=== PATIENT | female | born 1955 | race Caucasian/White ===

== ENCOUNTER 2017-09-06 08:23 | Inpatient (IN) ==
[2017-09-06] MEDS ORDERED: 0.9 % SODIUM CHLORIDE 1,000 ML IV ONE (08:38)
--- NOTE | 2017-09-06 08:56 | Emergency Department Note ---
GI Bleed HPI - General Chief complaint: Rectal Bleed Stated complaint: Rectal bleeding, diarrhea Time Seen by Provider: 09/06/17 08:54 Source: EMS Mode of arrival: EMS Limitations: no limitations - History of Present Illness HPI Narrative: Patient brought in by ambulance, progressive red blood per rectum, painless. Vomiting of frothy emesis, unclear quality. Patient reporting lightheaded, short of breath and weak. History of similar reaction, apparently treated with transfusions in the past, unclear history, patient unreliable. Patient lives independently. No chest pain. - Related Data Home Medications Medication Instructions Recorded Confirmed Albuterol Sulfate [Proair Hfa] 8.5 gm IH Q4-6HP PRN 08/17/15 09/06/17 HYDROcodone/APAP 5/325MG [[place] 1 - 2 tab PO Q4HP PRN 08/17/15 09/06/17 5/325Mg] LORazepam [Ativan] 0.5 mg PO Q4HP PRN 08/17/15 09/06/17 Spironolactone [Aldactone] 100 mg PO QDAY 08/17/15 09/06/17 Zolpidem Tartrate [Ambien] 5 mg PO QDAY 08/17/15 09/06/17 FLUoxetine HCL [PROzac] 20 mg PO DAILY 09/06/17 09/06/17 Lisinopril [Zestril] 10 mg PO DAILY 09/06/17 09/06/17 Allergies Allergy/AdvReac Type Severity Reaction Status Date / Time No Known Drug Allergies Allergy Verified 09/06/17 08:35 Review of Systems All systems ED: reviewed and negative except as stated. Past Medical History - Past Medical History Attestation: Yes: The following information was validated with the patient. Medical history: Reports: asthma, other (lower GI hemorrhage Alcoholism.) Surgical history ED: Reports: no surgical history Family history: Reports: non-contributory - Social History smoking status: Never smoker Alcohol use: Reports: Heavy Drug use: Reports: marijuana Physical Exam Limitations: no limitations General appearance: alert, other (pale) Head: atraumatic, normocephalic Eye: Present: normal appearance. Absent: scleral icterus ENT: mucous membranes moist Neck: Present: normal inspection. Absent: lymphadenopathy Chest: Present: normal inspection Respiratory: Present: normal lung sounds bilaterally. Absent: respiratory distress Cardiovascular: Present: regular rate, normal rhythm Abdominal: Present: soft. Absent: tenderness Rectal: Present: other ([place] blood, scant). Absent: hemorrhoids, mass Extremities: Present: normal inspection Neurological: Present: alert, oriented X3 Skin: Present: warm, pallor Course Vital Signs Pulse Rate 86 09/06/17 08:24 Respiratory Rate 18 09/06/17 08:24 Blood Pressure 113/71 09/06/17 08:24 Pulse Oximetry (%) 87 L 09/06/17 08:24 Pulse Rate 84 09/06/17 08:46 Respiratory Rate 18 09/06/17 08:46 Blood Pressure 128/81 09/06/17 08:46 Pulse Oximetry (%) 99 09/06/17 08:46 GI Bleed - Lab Data Lab results reviewed: Yes I reviewed the patient's lab results. Result diagrams: 09/06/17 08:43 09/06/17 08:42 Lab Results 09/06/17 Range/Units 08:42 POC Hct 16.0 L* (36.0-48.0) % POC Sodium 136 (133-145) mmol/L POC Potassium 4.0 (3.3-5.1) mmol/L POC Chloride 98 (96-108) mmol/L POC Total CO2 23 (22-30) mmol/L POC BUN 19 (8-23) mg/dl POC Creatinine 1.1 (0.6-1.1) mg/dl POC Glucose 156 H (70-105) mg/dL POC WB Ioniz Calcium 1.06 L (1.16-1.32) mmol/L Disposition Pt seen by SQL BI DEVELOPER/PA only: No Clinical Impression: Rectal bleeding, Pallor Summary: Patient's care transitioned to Dr. wei at shift change, please see his notes for disposition and final diagnosis Disposition: Still a Patient Condition: Undetermined Referrals: Raven Hanson MD [Primary Care Provider] -
[2017-09-06] MEDS ORDERED: 0.9 % SODIUM CHLORIDE 250 ML IV SCH ×2 (09:00→17:00)
[2017-09-06 09:13] LABS: Basophils # (Auto) 0.1 K/mcL (0.0-0.3); Basophils % (Auto) 0.8 % (0.0-2.0); Eosinophils # (Auto) 0.4 K/mcL (0.0-0.7); Eosinophils % (Auto) 5.4 % (0.0-7.0); Lymphocytes # (Auto) 1.9 K/mcL (1.5-4.8); Lymphocytes % (Auto) 23.2 % (15.5-49.0); Mean Cell Volume 92.8 fL (80.0-100.0); Mean Corpuscular HGB Conc 33.8 g/dL (31.0-36.0); Mean Corpuscular Hemoglobin 31.3 pg (26.0-34.0); Monocytes # (Auto) 0.5 K/mcL (0.1-0.9); Monocytes % (Auto) 6.6 % (1.0-12.0); Platelet Count 305 K/mcL (140-440); Red Cell Distribution Width 14.5 % (11.5-14.5)
[2017-09-06 09:24] LABS: ALT/SGPT 52 U/l (0-40); Albumin 3.9 gm/dL (3.2-5.2); Albumin/Globulin Ratio 1.4 (1.0-2.3); Alkaline Phosphatase 53 U/L (39-117); Blood Urea Nitrogen 18 mg/dl (8-23)
--- NOTE | 2017-09-06 10:30 | Emergency Department Note ---
GI Bleed HPI - General Chief complaint: Rectal Bleed Stated complaint: Rectal bleeding, diarrhea Time Seen by Provider: 09/06/17 08:54 Source: EMS Mode of arrival: EMS Limitations: no limitations - Related Data Home Medications Medication Instructions Recorded Confirmed Albuterol Sulfate [Proair Hfa] 8.5 gm IH Q4-6HP PRN 08/17/15 09/06/17 HYDROcodone/APAP 5/325MG [[place] 1 - 2 tab PO Q4HP PRN 08/17/15 09/06/17 5/325Mg] LORazepam [Ativan] 0.5 mg PO Q4HP PRN 08/17/15 09/06/17 Spironolactone [Aldactone] 100 mg PO QDAY 08/17/15 09/06/17 Zolpidem Tartrate [Ambien] 5 mg PO QDAY 08/17/15 09/06/17 FLUoxetine HCL [PROzac] 20 mg PO DAILY 09/06/17 09/06/17 Lisinopril [Zestril] 10 mg PO DAILY 09/06/17 09/06/17 Allergies Allergy/AdvReac Type Severity Reaction Status Date / Time No Known Drug Allergies Allergy Verified 09/06/17 08:35 Past Medical History - Past Medical History Medical history: Reports: asthma, other (lower GI hemorrhage Alcoholism.) Surgical history ED: Reports: no surgical history - Social History smoking status: Never smoker Alcohol use: Reports: Heavy Drug use: Reports: marijuana Physical Exam Limitations: no limitations General appearance: alert, other (pale) Course Vital Signs Pulse Rate 86 09/06/17 08:24 Respiratory Rate 18 09/06/17 08:24 Blood Pressure 113/71 09/06/17 08:24 Pulse Oximetry (%) 87 L 09/06/17 08:24 Pulse Rate 75 09/06/17 10:16 Respiratory Rate 14 09/06/17 10:16 Blood Pressure 143/88 09/06/17 10:16 Pulse Oximetry (%) 97 09/06/17 10:16 GI Bleed - [facility] Narrative Medical decision making narrative: I did a rectal exam this patient and really did not detect active bleeding. I discussed the case with the trains service conductor Dr. Figueroa who is on board with her being admitted. The hospitalist accepts her for admission. We have type and cross 4 units of blood and will start transfusion when available. This seems to be a fairly chronic situation and her vital signs are quite stable. - Lab Data Lab results reviewed: Yes I reviewed the patient's lab results. Result diagrams: 09/06/17 08:43 09/06/17 08:42 Lab Results 09/06/17 09/06/17 09/06/17 Range/Units 08:42 08:43 09:02 WBC 8.2 (4.5-11.0) K/mcL RBC 1.70 L (4.00-5.20) M/mcL Hgb 5.3 L* (12.0-15.0) g/dL Hct 15.8 L* (36.0-48.0) % POC Hct 16.0 L* (36.0-48.0) % MCV 92.8 (80.0-100.0) fL MCH 31.3 (26.0-34.0) pg MCHC 33.8 (31.0-36.0) g/dL RDW 14.5 (11.5-14.5) % Plt Count 305 (140-440) K/mcL MPV 7.5 (7.4-10.4) fL Gran % 64.0 (38.0-78.0) % Lymph % (Auto) 23.2 (15.5-49.0) % Sullivan % (Auto) 6.6 (1.0-12.0) % Eos % (Auto) 5.4 (0.0-7.0) % Baso % (Auto) 0.8 (0.0-2.0) % Gran # 5.2 (1.8-8.0) K/mcL Lymph # (Auto) 1.9 (1.5-4.8) K/mcL Sullivan # (Auto) 0.5 (0.1-0.9) K/mcL Eos # (Auto) 0.4 (0.0-0.7) K/mcL Baso # (Auto) 0.1 (0.0-0.3) K/mcL PT 13.5 (11.9-14.5) sec INR 1.0 (0.9-1.1) POC Sodium 136 (133-145) mmol/L Sodium 134 (133-145) mmol/L POC Potassium 4.0 (3.3-5.1) mmol/L Potassium 4.1 (3.3-5.1) mmol/L POC Chloride 98 (96-108) mmol/L Chloride 96 (96-108) mmol/L Carbon Dioxide 22 (22-30) mmol/L POC Total CO2 23 (22-30) mmol/L Anion Gap 16.0 (8-16) POC BUN 19 (8-23) mg/dl BUN 18 (8-23) mg/dl Creatinine 1.1 (0.6-1.1) mg/dl POC Creatinine 1.1 (0.6-1.1) mg/dl GFR Calculation 54 Glucose 156 H (70-105) mg/dL POC Glucose 156 H (70-105) mg/dL Calcium 8.5 L (8.6-10.4) mg/dl POC WB Ioniz Calcium 1.06 L (1.16-1.32) mmol/L Total Bilirubin < 0.2 (0.0-1.0) mg/dL AST 79 H (0-37) U/l ALT 52 H (0-40) U/l Alkaline Phosphatase 53 (39-117) U/L Total Protein 6.7 (5.9-8.4) gm/dL Albumin 3.9 (3.2-5.2) gm/dL Globulin 2.8 (2.2-3.7) gm/dL Albumin/Globulin Ratio 1.4 (1.0-2.3) Ethyl Alcohol (<0.010) gm/dl 09/06/17 Range/Units 09:26 WBC (4.5-11.0) K/mcL RBC (4.00-5.20) M/mcL Hgb (12.0-15.0) g/dL Hct (36.0-48.0) % POC Hct (36.0-48.0) % MCV (80.0-100.0) fL MCH (26.0-34.0) pg MCHC (31.0-36.0) g/dL RDW (11.5-14.5) % Plt Count (140-440) K/mcL MPV (7.4-10.4) fL Gran % (38.0-78.0) % Lymph % (Auto) (15.5-49.0) % Sullivan % (Auto) (1.0-12.0) % Eos % (Auto) (0.0-7.0) % Baso % (Auto) (0.0-2.0) % Gran # (1.8-8.0) K/mcL Lymph # (Auto) (1.5-4.8) K/mcL Sullivan # (Auto) (0.1-0.9) K/mcL Eos # (Auto) (0.0-0.7) K/mcL Baso # (Auto) (0.0-0.3) K/mcL PT (11.9-14.5) sec INR (0.9-1.1) POC Sodium (133-145) mmol/L Sodium (133-145) mmol/L POC Potassium (3.3-5.1) mmol/L Potassium (3.3-5.1) mmol/L POC Chloride (96-108) mmol/L Chloride (96-108) mmol/L Carbon Dioxide (22-30) mmol/L POC Total CO2 (22-30) mmol/L Anion Gap (8-16) POC BUN (8-23) mg/dl BUN (8-23) mg/dl Creatinine (0.6-1.1) mg/dl POC Creatinine (0.6-1.1) mg/dl GFR Calculation Glucose (70-105) mg/dL POC Glucose (70-105) mg/dL Calcium (8.6-10.4) mg/dl POC WB Ioniz Calcium (1.16-1.32) mmol/L Total Bilirubin (0.0-1.0) mg/dL AST (0-37) U/l ALT (0-40) U/l Alkaline Phosphatase (39-117) U/L Total Protein (5.9-8.4) gm/dL Albumin (3.2-5.2) gm/dL Globulin (2.2-3.7) gm/dL Albumin/Globulin Ratio (1.0-2.3) Ethyl Alcohol < 0.010 (<0.010) gm/dl Disposition Pt seen by PRINTING ESTIMATOR/PA only: No Clinical Impression: Rectal bleeding, Pallor Disposition: Xfer As Inpt ([facility]) Condition: Good Referrals: Raven Hanson MD [Primary Care Provider] - Time of Disposition: 10:30
[2017-09-06] MEDS ORDERED: PANTOPRAZOLE 40 MG VIAL IV ONE (11:59)
--- NOTE | 2017-09-06 12:12 | Internal Med History&Physical ---
Medical - H&P: HPI Patient information: Note initiated : 09/06/17 at 12:10 pm Service Date, if different from initiated Date: [] Patient: Brent Curtis a 61 y/o F admitted on for Rectal bleeding, diarrhea. Chief Complaint: [] Chief complaint: blood in watery stool over a week History of present illness: Ms. Curtis is a 61 year old F PMHx of HTN, OA, fatty liver, hep C, and ran out of her [place] (hydrocodone), and had been taking aspirin for the last couple weeks for her arthritis pain. She began developing watery bloody diarrhea with clumps of blood clots, and developed progressive weakness and lightheadedness in the last several days. Her last bowel movement was very early this morning. She reported similar event in the past and was treated last several years ago at [facility]. Her hemoglobin is at 5.3, with INR 1.0, currently starting on blood transfusion. GI with Dr. Figueroa has been consulted by Dr. Sierra of ER for potential endoscopy to evaluate GI bleed. She'll benefit from Protonix IV at the interim, will start. All systems: reviewed and no additional remarkable complaints except as stated - Constitutional Constitutional: Present: weakness - Cardiovascular Cardiovascular: Present: lightheadedness - Gastrointestinal Gastrointestinal: Present: diarrhea - Neurological Neurological: Present: as per HPI, weakness - Psychiatric Psychiatric: Present: depression Medical - H&P: PMH Medical history: Hypertension, osteoarthritis, fatty liver, hepatitis C GI hemorrhage, reported Alcoholism on record Social history: Live alone, her son and families are in town. Functional capacity: uses cane/walker Drug use: marijuana (smoked marijuana oil) Alcohol use: none (denies alcohol use (reported Alcoholism on record)) Medical - H&P: Meds Home Medications Medication Instructions Recorded Confirmed Type Albuterol Sulfate [Proair Hfa] 8.5 gm IH Q4-6HP PRN 08/17/15 09/06/17 History HYDROcodone/APAP 5/325MG [[place] 1 - 2 tab PO Q4HP PRN 08/17/15 09/06/17 History 5/325Mg] LORazepam [Ativan] 0.5 mg PO Q4HP PRN 08/17/15 09/06/17 History Spironolactone [Aldactone] 100 mg PO QDAY 08/17/15 09/06/17 History Zolpidem Tartrate [Ambien] 5 mg PO QDAY 08/17/15 09/06/17 History FLUoxetine HCL [PROzac] 20 mg PO DAILY 09/06/17 09/06/17 History Lisinopril [Zestril] 10 mg PO DAILY 09/06/17 09/06/17 History Omeprazole [PriLOSEC] 20 mg PO ACB 09/06/17 09/06/17 History Allergies Allergy/AdvReac Type Severity Reaction Status Date / Time No Known Drug Allergies Allergy Verified 09/06/17 08:35 Medical - H&P: Exam - Constitutional Vitals: Pulse Resp BP Pulse Ox 75 11 L 166/96 97 09/06/17 12:01 09/06/17 12:01 09/06/17 12:01 09/06/17 12:01 General appearance: cooperative Exam: Very pale elderly female, appearing much older than stated age - Head Head exam: Present: atraumatic, normocephalic - Eye Eye exam: Present: EOMI Pupils: Present: normal accommodation, PERRL - ENT ENT exam: Present: mucous membranes dry - Neck Neck exam: Present: full ROM. Absent: meningismus - Respiratory Respiratory exam: Present: CTAB. Absent: accessory muscle use - Cardiovascular Cardiovascular exam: Present: +S1, +S2. Absent: gallop, rubs - GI/Abdominal GI/Abdominal exam: Present: normal bowel sounds, soft. Absent: guarding, rebound, tenderness - Extremities Exam Extremities exam: Present: full ROM. Absent: pedal edema, tenderness Additional comments: Code feet, but No clubbing/cyanosis, or edema - Neurological Exam Neurological exam: Present: alert, CN II-XII intact, oriented X3 - Psychiatric Psychiatric exam: Present: anxious - Skin Skin exam: Present: dry, pallor Medical - H&P: Reslt - Labs CBC & Chem 7: 09/06/17 22:50 09/06/17 08:42 Labs: Short CBC 09/06/17 Range/Units 08:43 WBC 8.2 (4.5-11.0) K/mcL Hgb 5.3 L* (12.0-15.0) g/dL Hct 15.8 L* (36.0-48.0) % Plt Count 305 (140-440) K/mcL BMP 09/06/17 08:42 Sodium 134 Potassium 4.1 Chloride 96 Carbon Dioxide 22 BUN 18 Creatinine 1.1 Glucose 156 H Calcium 8.5 L Liver Function 09/06/17 Range/Units 08:42 Total Bilirubin < 0.2 (0.0-1.0) mg/dL AST 79 H (0-37) U/l ALT 52 H (0-40) U/l Alkaline Phosphatase 53 (39-117) U/L Albumin 3.9 (3.2-5.2) gm/dL Medical - H&P: A/P (1) GI bleed due to NSAIDs Current visit: Yes Status: Acute (2) Anemia Current visit: No Status: Acute - Narrative A/P Narrative: 61-year-old female with history of reported alcohol abuse (patient denies), hep C, fatty liver, have significant anemia, from GI bleeding due to NSAID use. --Transfuse 4 units packed red blood cells, Protonix drip, --Check TSH, reticulocyte count, guaiac all stools, --GI consult with Dr. Figueroa for potential endoscopy --Stop all NSAID use. Iron replacement
[2017-09-06] MEDS: PANTOPRAZOLE 80 MG in 0.9 % SODIUM CHLORIDE 100 ML IV SCH ×2 (12:21→21:54)
[2017-09-06 13:34] LABS: Ferritin 27.6 ng/ml (30-400)
[2017-09-06 13:43] LABS: Retic Absolute 3.3 % (0.5-1.5)
[2017-09-06] MEDS: 0.9 % SODIUM CHLORIDE 10 ML SYRINGE IV SCH ×3 (14:29→21:54)
[2017-09-06 14:38] LABS: Appearance,Urine CLEAR; Bacteria,Urine 0 /hpf (0); Bilirubin,Urine NEG (NEG); Color,Urine YELLOW; Glucose,Urine (UA) NEGATIVE (NEG); Leukocyte Esterase,Urine NEG /uL (NEG); Mucus,Urine FEW /hpf (0); Protein,Urine NEG (NEG); Specific Gravity,Urine 1.013 (1.000-1.035); Urine Blood 0.03 mg/dL (<0.03); Urine Hyaline Cast 4 /lpf (0-2); Urine RBC < 1 /hpf (0-1); Urine Squamous Epithelial Cell 1 /hpf (0-4); Urine WBC 1 /hpf (0-4); Urobilinogen,Urine NEG (NEG)
[2017-09-06] MEDS ORDERED: METOPROLOL TARTRATE 5 MG/5 ML VIAL IV ONE ×2 (16:45→17:36)
[2017-09-06] MEDS ORDERED: FUROSEMIDE 20 MG/2 ML VIAL IV ONE ×2 (16:50→17:37)
[2017-09-06 17:59] LABS: Gamma Glutamyl Transpeptidase 39 U/L (5-36)
[2017-09-06] MEDS ORDERED: LISINOPRIL 10 MG TABLET PO ONE (18:15)
[2017-09-06] MEDS: HYDROcodone/APAP 5/325MG TABLET PO PRN ×2 (19:15→23:11)
[2017-09-07] MEDS: HYDROcodone/APAP 5/325MG TABLET PO PRN ×3 (04:16→22:20)
[2017-09-07] MEDS: 0.9 % SODIUM CHLORIDE 10 ML SYRINGE IV SCH ×3 (05:17→22:25)
[2017-09-07 05:50] LABS: Basophils # (Auto) 0 K/mcL (0.0-0.3); Basophils % (Auto) 0.5 % (0.0-2.0); Eosinophils # (Auto) 0.3 K/mcL (0.0-0.7); Eosinophils % (Auto) 3.4 % (0.0-7.0); Granulocytes % (Auto) 70.4 % (38.0-78.0); Lymphocytes # (Auto) 1.4 K/mcL (1.5-4.8); Lymphocytes % (Auto) 18.4 % (15.5-49.0); Mean Cell Volume 91.2 fL (80.0-100.0); Mean Corpuscular HGB Conc 34.1 g/dL (31.0-36.0); Mean Corpuscular Hemoglobin 31.1 pg (26.0-34.0); Monocytes # (Auto) 0.6 K/mcL (0.1-0.9); Monocytes % (Auto) 7.3 % (1.0-12.0); Platelet Count 192 K/mcL (140-440); RBC 4.03 M/mcL (4.00-5.20); Red Cell Distribution Width 15.7 % (11.5-14.5)
[2017-09-07 06:19] LABS: ALT/SGPT 41 U/l (0-40); Albumin 3.7 gm/dL (3.2-5.2); Albumin/Globulin Ratio 1.5 (1.0-2.3); Alkaline Phosphatase 56 U/L (39-117); Blood Urea Nitrogen 12 mg/dl (8-23)
[2017-09-07] MEDS: 0.9 % SODIUM CHLORIDE 250 ML IV SCH ×2 (06:37→22:27)
[2017-09-07] MEDS: PANTOPRAZOLE 80 MG in 0.9 % SODIUM CHLORIDE 100 ML IV SCH ×3 (06:53→22:00)
[2017-09-07] MEDS ORDERED: POTASSIUM CHLORIDE 40 MEQ in DEXTROSE 5% IN WATER 500 ML IV ONE (07:39)
[2017-09-07] MEDS ORDERED: CALCIUM GLUCONATE 4.65 MEQ/10 ML VIAL IV ONE (07:39)
--- NOTE | 2017-09-07 07:47 | Internal Med Progress Note ---
Medical - PN: Subj Patient information: Note initiated : 09/07/17 at 7:46 am Service Date, if different from initiated Date: [] Patient: Brent Curtis a 61 y/o F admitted on 09/06/17 for Rectal bleeding, diarrhea. Chief Complaint: [] Interval history: 61 year old F with PMHx of HTN, OA, fatty liver, hep C, and ran out of her [place] (hydrocodone), and had been taking aspirin for the last couple weeks for her arthritis pain. She began developing watery bloody diarrhea with clumps of blood clots, and developed progressive weakness and lightheadedness in the last several days. Her last bowel movement was very early this morning. She reported similar event in the past and was treated last several years ago at [facility]. Her hemoglobin is at 5.3, with INR 1.0, currently starting on blood transfusion. GI with Dr. Figueroa has been consulted by Dr. Sierra of ER for potential endoscopy to evaluate GI bleed. She is put on Protonix IV at the interim. 09/07/17 No bowel movement or diarrhea overnight since admission. TSH and free T4 evaluation shows hypothyroidism, will start oral replacement. Colonoscopy with Dr. Figueroa today. - Constitutional Vitals: Vital Signs Temp Pulse Resp BP Pulse Ox 98.5 F 64 14 140/86 97 09/07/17 04:09 09/07/17 04:09 09/07/17 03:41 09/07/17 03:41 09/07/17 04:09 Period Temp Pulse Resp BP Sys/Rae Pulse Ox Last 24 Hr 97.9 F-99.7 F 64-86 11-25 113-179/71-117 87-100 Intake and Output 09/06/17 09/07/17 09/07/17 21:59 05:59 13:59 Intake Total 814 / 814 200 / 200 3 / 3 Output Total 1700 / 1700 600 / 600 Balance -886 / -886 -400 / -400 3 / 3 Weight 132 lb 11.2 oz Intake & Output: Intake & Output 09/06/17 09/07/17 09/07/17 21:59 05:59 13:59 Intake Total 814 / 814 200 / 200 3 / 3 Output Total 1700 / 1700 600 / 600 Balance -886 / -886 -400 / -400 3 Weight 132 lb 11.2 oz Intake: IV 164 / 164 3 / 3 Sodium Chloride 0.9% 250 ml @ 68 / 68 3 / 3 20 mls/hr IV .[id number] ROBB Rx#: [id number] Protonix 80 mg In Sodium 96 / 96 Chloride 0.9% 100 ml @ 8 MG/HR 10 mls/hr IV Q10H ROBB Rx#: [id number] Oral 0 / 0 200 / 200 Blood Product 650 / 650 Output: Urine Catheter Amount 950 / 950 600 / 600 Void Amount 750 / 750 # of times incontinent of urine 0 / 0 Other: Stool Size Small Stool Color Brown Blood Tinged Stool Consistency Honey # Voids 1 # Bowel Movements 1 Medical - PN: Obj Da - Labs CBC & Chem 7: 09/07/17 04:00 09/07/17 04:00 Labs: Abnormal Lab Results 09/07/17 09/07/17 09/06/17 04:00 04:00 23:15 RBC Hgb Hct POC Hct RDW 15.7 H Lymph # (Auto) 1.4 L Absolute Retic Potassium 3.1 L Chloride 95 L Glucose POC Glucose Calcium 8.1 L POC WB Ioniz Calcium Transferrin % Sat Ferritin Total Bilirubin 1.2 H GGT AST 51 H ALT 41 H Ammonia Troponin T 0.05 H* TSH Free T4 Urine Occult Blood Hyaline Casts 09/06/17 09/06/17 09/06/17 22:50 16:55 16:55 RBC Hgb Hct 35.9 L POC Hct RDW Lymph # (Auto) Absolute Retic Potassium Chloride Glucose POC Glucose Calcium POC WB Ioniz Calcium Transferrin % Sat Ferritin Total Bilirubin GGT 39 H AST ALT Ammonia 10 L Troponin T TSH Free T4 Urine Occult Blood Hyaline Casts 09/06/17 09/06/17 09/06/17 14:09 14:03 13:25 RBC Hgb Hct POC Hct RDW Lymph # (Auto) Absolute Retic Potassium Chloride Glucose POC Glucose Calcium POC WB Ioniz Calcium Transferrin % Sat Ferritin Total Bilirubin GGT AST ALT Ammonia Troponin T 0.05 H* TSH Free T4 0.14 L Urine Occult Blood 0.03 A Hyaline Casts 4 H 09/06/17 09/06/17 09/06/17 12:34 12:33 08:43 RBC Hgb Hct POC Hct RDW Lymph # (Auto) Absolute Retic 3.3 H Potassium Chloride Glucose POC Glucose Calcium POC WB Ioniz Calcium Transferrin % Sat 11 L Ferritin 27.6 L Total Bilirubin GGT AST ALT Ammonia Troponin T 0.04 H* TSH 91.46 H Free T4 Urine Occult Blood Hyaline Casts 09/06/17 09/06/17 08:43 08:42 RBC 1.70 L Hgb 5.3 L* Hct 15.8 L* POC Hct 16.0 L* RDW Lymph # (Auto) Absolute Retic Potassium Chloride Glucose 156 H POC Glucose 156 H Calcium 8.5 L POC WB Ioniz Calcium 1.06 L Transferrin % Sat Ferritin Total Bilirubin GGT AST 79 H ALT 52 H Ammonia Troponin T TSH Free T4 Urine Occult Blood Hyaline Casts Meds: Medications Hydrocodone Bitart/Acetaminophen ([place] 5/325mg) 1 tab PO Q4-6HP PRN PRN Reason: PAIN LEVEL 3-6 Last Admin: 09/07/17 04:16 Dose: 1 tab Calcium Gluconate (Calcium Gluconate) 9.3 meq IV ONCE ONE Stop: 09/07/17 07:40 Fluoxetine HCl (Prozac) 20 mg PO DAILY ROBB Sodium Chloride (Sodium Chloride 0.9%) 250 mls @ 20 mls/hr IV .[id number] [facility] Last Infusion: 09/07/17 06:53 Dose: 14 mls/hr Pantoprazole Sodium 80 mg/ (Sodium Chloride) 100 mls @ 10 mls/hr IV Q10H ROBB PRN Reason: 8 MG/HR Last Admin: 09/07/17 06:53 Dose: 8 mg/hr, 10 mls/hr Potassium Chloride 40 meq/ (Dextrose) 520 mls @ 130 mls/hr IV ONCE ONE Stop: 09/07/17 11:38 Lisinopril (Zestril) 10 mg PO DAILY ROBB Ondansetron HCl (Zofran) 4 mg IV Q4HP PRN PRN Reason: Nausea And Vomiting Sodium Chloride (Saline Flush) 10 ml IV Q8 ROBB Last Admin: 09/07/17 05:17 Dose: 10 ml Medical - PN: A/P - Time Spent With Patient Total time spent is greater than 50% in coordination of care (as documented) at patient's floor/unit and/or counseling patient: (1) GI bleed due to NSAIDs Status: Acute Current Visit: Yes (2) Anemia Status: Acute Current Visit: No Medical - PN: Qual - Stroke Symptom Onset Unknown: No - VTE Deep Vein Thrombosis/Pulmonary Embolism Present on Admission: No
[2017-09-07] MEDS ORDERED: PEG 3350/NA SULF,BICARB,CL/KCL 4,000 ML ORAL.SOL PO ONE (08:58)
[2017-09-07] MEDS ORDERED: LISINOPRIL 10 MG TABLET PO SCH (09:00)
[2017-09-07] MEDS: LISINOPRIL 10 MG TABLET PO SCH (09:14)
[2017-09-07] MEDS: FLUoxetine HCL 20 MG CAPSULE PO SCH (09:14)
[2017-09-07] MEDS ORDERED: DEXTROSE 5% IV ONE (10:30)
[2017-09-07] MEDS ORDERED: CALCIUM CHLORIDE IV ONE (10:30)
[2017-09-07] MEDS ORDERED: WATER IV ONE (10:30)
[2017-09-07] MEDS: ONDANSETRON 4 MG/2 ML VIAL IV PRN (12:38)
[2017-09-07] MEDS ORDERED: amLODIPine 5 MG TABLET PO ONE (14:45)
[2017-09-07] MEDS ORDERED: SPIRONOLACTONE 25 MG TABLET PO ONE (14:45)
[2017-09-07] MEDS ORDERED: LEVOTHYROXINE 50 MCG TABLET PO ONE (18:26)
[2017-09-07] MEDS ORDERED: BISACODYL 5 MG TABLET PO SCH (21:00)
[2017-09-07] MEDS ORDERED: LABETALOL 5 MG/ML ML IV PRN (21:16)
[2017-09-07] MEDS ORDERED: NITROGLYCERIN 1 GM OINT.TOP ONE (22:18)
[2017-09-07] MEDS: NITROGLYCERIN 1 GM OINT.TOP TD SCH (22:20)
[2017-09-08] MEDS: ONDANSETRON 4 MG/2 ML VIAL IV PRN ×2 (04:02→10:35)
[2017-09-08] MEDS: 0.9 % SODIUM CHLORIDE 10 ML SYRINGE IV SCH ×5 (04:02→22:10)
[2017-09-08] MEDS: PANTOPRAZOLE 80 MG in 0.9 % SODIUM CHLORIDE 100 ML IV SCH (05:21)
[2017-09-08] MEDS: NITROGLYCERIN 1 GM OINT.TOP TD SCH ×3 (05:48→20:39)
[2017-09-08 07:02] LABS: ALT/SGPT 37 U/l (0-40); Albumin 3.7 gm/dL (3.2-5.2); Albumin/Globulin Ratio 1.2 (1.0-2.3); Alkaline Phosphatase 57 U/L (39-117); Blood Urea Nitrogen 8 mg/dl (8-23)
--- NOTE | 2017-09-08 07:43 | Internal Med Progress Note ---
Medical - PN: Subj Patient information: Note initiated : 09/08/17 at 7:43 am Service Date, if different from initiated Date: [] Patient: Brent Curtis a 61 y/o F admitted on 09/06/17 for Rectal Bleeding, Diarrhea/GI Bleed due to NSAIDs. Chief Complaint: [] Interval history: 61 year old F with PMHx of HTN, OA, fatty liver, hep C, and ran out of her [place] (hydrocodone), and had been taking aspirin for the last couple weeks for her arthritis pain. She began developing watery bloody diarrhea with clumps of blood clots, and developed progressive weakness and lightheadedness in the last several days. Her last bowel movement was very early this morning. She reported similar event in the past and was treated last several years ago at [facility]. Her hemoglobin is at 5.3, with INR 1.0, currently starting on blood transfusion. GI with Dr. Figueroa has been consulted by Dr. Sierra of ER for potential endoscopy to evaluate GI bleed. She is put on Protonix IV at the interim. 09/07/17 No bowel movement or diarrhea overnight since admission. TSH and free T4 evaluation shows hypothyroidism, will start oral replacement. Colonoscopy with Dr. Figueroa today. 09/08/[address] Figueroa, colonoscopy with few sessile polyps ( removed with snare), diverticula without diverticulitis, or sources of bleeding , Dr. Figueroa will proceed with EGD to evaluate GI bleeding tomorrow. Low potassium today, IV replace K rider. Otherwise patient is doing well, no more incidence of melena, hematochezia, nor black tarry stool. We will stop protonic strip. Continue daily Synthroid 25 g after initial dose of 50 g yesterday evening. - Constitutional Vitals: Vital Signs Temp Pulse Resp BP Pulse Ox 98.2 F 70 16 143/95 96 09/08/17 06:51 09/07/17 20:01 09/08/17 06:51 09/08/17 06:51 09/08/17 06:51 Period Temp Pulse Resp BP Sys/Rae Pulse Ox Last 24 Hr 97.5 F-98.2 F 70-81 16-20 134-207/91-122 93-98 Intake and Output 09/07/17 09/08/1709/08/18 21:59 05:59 13:59 Intake Total 880 / 880 578 / 578 Output Total 1225 / 1225 1400 / 1400 Balance -345 / -345 -822 / -822 Weight 134 lb 7 oz Intake & Output: Intake & Output 09/07/17 09/08/17 09/08/17 21:59 05:59 13:59 Intake Total 880 / 880 578 / 578 Output Total 1225 / 1225 1400 / 1400 Balance -345 / -345 -822 / -822 Weight 134 lb 7 oz Intake: IV 880 / 880 218 / 218 Sodium Chloride 0.9% 250 ml @ 218 / 218 20 mls/hr IV .[id number] Rx#: [id number] Protonix 80 mg In Sodium 100 / 100 Chloride 0.9% 100 ml @ 8 MG/HR 10 mls/hr IV Q10H ROBB Rx#: [id number] Oral 360 / 360 Output: Urine Catheter Amount 675 / 675 Void Amount 750 / 750 Stool 550 / 550 650 / 650 Other: Stool Size Copious Stool Color Brown Black Bright Red Blood Dark Red Blood Stool Consistency Liquid Watery Loose # Bowel Movements 2 # of times incontinent of 1 Bowels - Head Head exam: Present: atraumatic, normocephalic - Eye Eye exam: Present: EOMI Pupils: Present: normal accommodation, PERRL - ENT ENT exam: Present: mucous membranes dry - Neck Neck exam: Absent: lymphadenopathy, meningismus - Respiratory Respiratory exam: Present: CTAB. Absent: accessory muscle use - Cardiovascular Cardiovascular exam: Present: +S1, +S2. Absent: gallop, rubs - GI/Abdominal GI/Abdominal exam: Present: soft. Absent: guarding, rebound - Extremities Exam Extremities exam: Present: normal capillary refill, neurovascular intact. Absent: pedal edema - Neurological Exam Neurological exam: Present: alert, CN II-XII intact. Absent: motor sensory deficit - Psychiatric Additional comments: Somewhat hypertalkative, and odds - Skin Skin exam: Present: dry, intact, warm Medical - PN: Obj Da - Labs CBC & Chem 7: 09/09/17 06:51 09/09/17 03:25 Labs: Abnormal Lab Results 09/08/17 09/07/17 09/07/17 03:35 04:00 04:00 RBC Hgb Hct POC Hct RDW 15.7 H Lymph # (Auto) 1.4 L Absolute Retic Potassium 2.9 L* 3.1 L Chloride 95 L 95 L Glucose POC Glucose Calcium 8.5 L 8.1 L POC WB Ioniz Calcium Transferrin % Sat Ferritin Total Bilirubin 1.2 H GGT AST 46 H 51 H ALT 41 H Ammonia Troponin T TSH Free T4 Urine Occult Blood Hyaline Casts 09/06/17 09/06/17 09/06/17 23:15 22:50 16:55 RBC Hgb Hct 35.9 L POC Hct RDW Lymph # (Auto) Absolute Retic Potassium Chloride Glucose POC Glucose Calcium POC WB Ioniz Calcium Transferrin % Sat Ferritin Total Bilirubin GGT AST ALT Ammonia 10 L Troponin T 0.05 H* TSH Free T4 Urine Occult Blood Hyaline Casts 09/06/17 09/06/17 09/06/17 16:55 14:09 14:03 RBC Hgb Hct POC Hct RDW Lymph # (Auto) Absolute Retic Potassium Chloride Glucose POC Glucose Calcium POC WB Ioniz Calcium Transferrin % Sat Ferritin Total Bilirubin GGT 39 H AST ALT Ammonia Troponin T 0.05 H* TSH Free T4 0.14 L Urine Occult Blood Hyaline Casts 09/06/17 09/06/17 09/06/17 13:25 12:34 12:33 RBC Hgb Hct POC Hct RDW Lymph # (Auto) Absolute Retic 3.3 H Potassium Chloride Glucose POC Glucose Calcium POC WB Ioniz Calcium Transferrin % Sat 11 L Ferritin 27.6 L Total Bilirubin GGT AST ALT Ammonia Troponin T TSH 91.46 H Free T4 Urine Occult Blood 0.03 A Hyaline Casts 4 H 09/06/17 09/06/17 09/06/17 08:43 08:43 08:42 RBC 1.70 L Hgb 5.3 L* Hct 15.8 L* POC Hct 16.0 L* RDW Lymph # (Auto) Absolute Retic Potassium Chloride Glucose 156 H POC Glucose 156 H Calcium 8.5 L POC WB Ioniz Calcium 1.06 L Transferrin % Sat Ferritin Total Bilirubin GGT AST 79 H ALT 52 H Ammonia Troponin T 0.04 H* TSH Free T4 Urine Occult Blood Hyaline Casts Meds: Medications Hydrocodone Bitart/Acetaminophen ([place] 5/325mg) 1 tab PO Q4-6HP PRN PRN Reason: PAIN LEVEL 3-6 Last Admin: 09/07/17 22:20 Dose: 1 tab Amlodipine Besylate (Norvasc) 5 mg PO DAILY [facility] Bisacodyl (Dulcolax) 5 mg PO DAILY [facility] Stop: 09/09/17 08:59 Fluoxetine HCl (Prozac) 20 mg PO DAILY [facility] Last Admin: 09/07/17 09:14 Dose: 20 mg Sodium Chloride (Sodium Chloride 0.9%) 250 mls @ 20 mls/hr IV .[id number] [facility] Last Admin: 09/07/17 22:27 Dose: 10 mls/hr Potassium Chloride 20 meq/ (Dextrose) 260 mls @ 130 mls/hr IV ONCE ONE Stop: 09/08/17 09:59 Labetalol HCl (Trandate) 10 mg IV Q2HP PRN PRN Reason: uncontrolled hypertension Levothyroxine Sodium (Synthroid) 25 mcg PO QAMAC [facility] Lisinopril (Zestril) 10 mg PO DAILY [facility] Last Admin: 09/07/17 09:14 Dose: 10 mg Magnesium Citrate (Citroma) 300 ml PO DAILY [facility] Stop: 09/09/17 08:59 Nitroglycerin (Nitro-Bid) 1 gm TD Q6HX2R@1800 [facility] Last Admin: 09/08/17 05:48 Dose: 1 gm Ondansetron HCl (Zofran) 4 mg IV Q4HP PRN PRN Reason: Nausea And Vomiting Last Admin: 09/08/17 04:02 Dose: 4 mg Polyethylene Glycol/Electrolytes (Golytely) 4,000 ml PO ONCE ONE Stop: 09/08/17 10:01 Sodium Chloride (Saline Flush) 10 ml IV Q8 [facility] Last Admin: 09/08/17 04:02 Dose: 10 ml Spironolactone (Aldactone) 100 mg PO DAILY [facility] Medical - PN: A/P - Time Spent With Patient Total time spent is greater than 50% in coordination of care (as documented) at patient's floor/unit and/or counseling patient: (1) GI bleed due to NSAIDs Status: Acute Current Visit: Yes (2) Hypothyroidism Status: Acute Current Visit: Yes (3) Anemia Status: Acute Current Visit: No - Narrative A/P Narrative: See above Medical - PN: Qual - Stroke Symptom Onset Unknown: No - VTE Deep Vein Thrombosis/Pulmonary Embolism Present on Admission: No
[2017-09-08] MEDS ORDERED: POTASSIUM CHLORIDE 20 MEQ in DEXTROSE 5% IN WATER 250 ML IV ONE (08:00)
[2017-09-08] MEDS: LEVOTHYROXINE 25 MCG TABLET PO SCH (08:23)
[2017-09-08] MEDS: 0.9 % SODIUM CHLORIDE 250 ML IV SCH (08:25)
[2017-09-08] MEDS ORDERED: BISACODYL 5 MG TABLET PO SCH (09:00)
[2017-09-08] MEDS ORDERED: MAGNESIUM CITRATE 300 ML ORAL.SOL PO SCH (09:00)
[2017-09-08] MEDS: LISINOPRIL 10 MG TABLET PO SCH (09:28)
[2017-09-08] MEDS: amLODIPine 5 MG TABLET PO SCH (09:28)
[2017-09-08] MEDS: FLUoxetine HCL 20 MG CAPSULE PO SCH (09:28)
[2017-09-08] MEDS: SPIRONOLACTONE 25 MG TABLET PO SCH (09:29)
[2017-09-08] MEDS ORDERED: PEG 3350/NA SULF,BICARB,CL/KCL 4,000 ML ORAL.SOL PO ONE (10:00)
[2017-09-08] MEDS ORDERED: LORazepam 2 MG/ML VIAL IV PRN (11:02)
[2017-09-08] MEDS ORDERED: MIDAZOLAM 2 MG/2 ML VIAL IV SCH (17:45)
[2017-09-08] MEDS ORDERED: PROPOFOL 200 MG/20 ML VIAL IV SCH (17:45)
[2017-09-08] MEDS ORDERED: PROPOFOL 20 ML IV ONE (17:46)
[2017-09-08] MEDS ORDERED: MIDAZOLAM 2 MG/2 ML VIAL ONE (17:46)
[2017-09-08] MEDS ORDERED: PROPOFOL 0 ML IV ONE (17:46)
[2017-09-09] MEDS: 0.9 % SODIUM CHLORIDE 10 ML SYRINGE IV SCH ×4 (05:33→21:00)
[2017-09-09] MEDS: HYDROcodone/APAP 5/325MG TABLET PO PRN (05:33)
[2017-09-09] MEDS: NITROGLYCERIN 1 GM OINT.TOP TD SCH ×3 (05:34→17:48)
[2017-09-09 05:35] LABS: ALT/SGPT 33 U/l (0-40); Albumin 3.7 gm/dL (3.2-5.2); Albumin/Globulin Ratio 1.3 (1.0-2.3); Alkaline Phosphatase 57 U/L (39-117); Blood Urea Nitrogen 5 mg/dl (8-23)
[2017-09-09 07:22] LABS: Basophils # (Auto) 0 K/mcL (0.0-0.3); Basophils % (Auto) 0.2 % (0.0-2.0); Eosinophils # (Auto) 0.2 K/mcL (0.0-0.7); Eosinophils % (Auto) 2.7 % (0.0-7.0); Granulocytes % (Auto) 76.7 % (38.0-78.0); Lymphocytes # (Auto) 1.1 K/mcL (1.5-4.8); Mean Cell Volume 91.2 fL (80.0-100.0); Mean Corpuscular HGB Conc 34.2 g/dL (31.0-36.0); Mean Corpuscular Hemoglobin 31.2 pg (26.0-34.0); Monocytes # (Auto) 0.6 K/mcL (0.1-0.9); Monocytes % (Auto) 7.4 % (1.0-12.0); Platelet Count 232 K/mcL (140-440); RBC 3.77 M/mcL (4.00-5.20); Red Cell Distribution Width 15.6 % (11.5-14.5)
[2017-09-09] MEDS: LEVOTHYROXINE 25 MCG TABLET PO SCH (07:41)
[2017-09-09] MEDS ORDERED: MIDAZOLAM 2 MG/2 ML VIAL IV SCH (08:15)
[2017-09-09] MEDS ORDERED: PROPOFOL 200 MG/20 ML VIAL IV SCH (08:15)
[2017-09-09] MEDS: amLODIPine 5 MG TABLET PO SCH (09:25)
[2017-09-09] MEDS: SPIRONOLACTONE 25 MG TABLET PO SCH (09:25)
[2017-09-09] MEDS: FLUoxetine HCL 20 MG CAPSULE PO SCH (09:25)
[2017-09-09] MEDS: LISINOPRIL 10 MG TABLET PO SCH (09:25)
--- NOTE | 2017-09-09 09:36 | Operative Note ---
DATE OF OPERATION: 09/08/2017 PREPROCEDURE DIAGNOSIS: Lower GI bleed, possibly secondary to cancer causing partial obstruction. POSTPROCEDURE DIAGNOSES: Three colon polyps, diverticulosis, hemorrhoids, no active bleeding found. Bleeding could be from upper GI tract or from diverticular bleeding that has subsequently stopped. ADDITIONAL COMMENTS: Colored fluid in the colon was negative for blood, negative guaiac. PROCEDURE: Colonoscopy with polypectomy. INSTRUMENT USED: Olympus LORAINE [id number] colonoscope. SPECIMENS OBTAINED: Polyp transverse colon, polyp descending colon, polyp sigmoid colon, all sessile in configuration, ranging from around 4 to 8 mm in size, all removed cold technique. INDICATIONS FOR PROCEDURE: The patient is a 61-year-old lady referred by the ER physician at [facility]. The patient was admitted under the courtesy of one of the hospitalists. The patient's primary care physician is Dr. Raven Hanson. Allegedly, the patient had had some red blood per rectum for about a week. I believe the hemoglobin is in the 5 gram range. I believe she received 4 units of blood. Subsequently, I believe per verbal report, the hemoglobin is up to about the 12 gram range. The patient did have some low potassium, but did receive a K rider-potassium supplementation. Allegedly, the patient abused alcohol in the past. However, she denies using alcohol in the recent past few years. She had no nausea and vomiting prior to the hospitalization. During the hospitalization she has had some nausea and vomiting. This may have been in part because of the bowel prep. She does have some hypertension. Given her history, I believe a colonoscopy would be [place] since she has had some reddish blood per rectum, or reddish material per rectum for a week. It is unlikely was an upper GI source as usually red blood per rectum from an upper GI source causes significant hemodynamic instability. The patient allegedly was quite hemodynamically stable. Her blood pressure, if anything was a little high rather than low. I do not believe she was tachycardic. Colonoscopy is indicated. I do not believe the patient has ever had a colonoscopy. We have two reasons for the colonoscopy, the presumed lower GI bleeding and we need to be alert for polyps. INFORMED CONSENT: The procedure was reviewed with the patient. The patient had no further questions and accepts the risks and benefits thereof. One of the risks that were discussed included . Additional risks that were also discussed included bleeding, reaction to medication, possible perforation and possible need for surgery. IV MEDICATIONS USED: Versed 2 and propofol 130. FINDINGS: RECTUM: Minimal hemorrhoids were noted. These were not bleeding. SIGMOID COLON: There was a 6 mm polyp, sessile in configuration, removed with a snare cold technique. SIGMOID/DESCENDING COLON: Many diverticula. Some were inverted. In the descending colon, in the more proximal portion, there was an 8 mm polyp removed with the snare cold technique. This was sessile in configuration. SPLENIC FLEXURE: Normal. TRANSVERSE COLON: A few diverticula were noted. There was a 4 mm sessile polyp removed with a snare cold technique. HEPATIC FLEXURE: Normal. ASCENDING COLON: A few diverticula were present. CECUM: The cecum was identified by the ileocecal valve. This appeared normal. Some of the orange- reddish fluid was removed by suction. This was checked for occult blood. This was negative. TERMINAL ILEUM: This was inspected for several centimeters. There was also the orange-reddish fluid noted. It is unlikely to be blood since the evaluation was negative for occult blood. Recommendations EGD on Thursday. The patient can have a liquid diet in the morning and then be n.p.o. She should call in a week for the pathology report. She probably should have another colonoscopy in 3 years. Further recommendations may be forthcoming after the results of the EGD are known. SEDATION TIME: 17:56 to 18:45. Please refer to the preprocedure nurse's notes, procedure flowsheet, procedure record, and post-procedure assessment for details of the sedation including the pre-, intra-, and post-service work. [email or web address] Job ID: [id number] Doc ID: [id number] Surjit Carolina MD
--- NOTE | 2017-09-09 10:14 | Discharge Summary ---
Medical - DS: Prov Patient information: Note initiated : 09/09/17 at 10:11 am Service Date, if different from initiated Date: [] Patient: Brent Curtis a 61 y/o F admitted on 09/06/17 for Rectal Bleeding, Diarrhea/GI Bleed due to NSAIDs. Chief Complaint: [] Date of admission: 09/06/17 13:44 Primary care physician: Raven Hanson Admitting clinician: Wilfred Carolina Consults: 09/06/17 10:26 Consult to Physician [CONS] Stat Comment: Consulting Provider: Wilfred Carolina Reason For Exam: Physician to Consult Consult to Physician [CONS] Stat Comment: Consulting Provider: Surjit Mahoney Reason For Exam: Physician to Consult Attending physician on discharge: Wilfred Carolina Medical - DS: Meds - Discharge Medications Active and Home Medications: Home Medications Albuterol Sulfate [Proair Hfa] 8.5 gm IH Q4-6HP PRN 08/17/15 [History Confirmed 09/06/17 Last Taken Unknown] HYDROcodone/APAP 5/325MG [[place] 5/325Mg] 1 - 2 tab PO Q4HP PRN 08/17/15 [ History Confirmed 09/06/17 Last Taken Unknown] LORazepam [Ativan] 0.5 mg PO Q4HP PRN 08/17/15 [History Confirmed 09/06/17 Last Taken Unknown] Spironolactone [Aldactone] 100 mg PO QDAY 08/17/15 [History Confirmed 09/06/17 Last Taken Unknown] Zolpidem Tartrate [Ambien] 5 mg PO QDAY 08/17/15 [History Confirmed 09/06/17 Last Taken Unknown] FLUoxetine HCL [PROzac] 20 mg PO DAILY 09/06/17 [History Confirmed 09/06/17 Last Taken Unknown] Lisinopril [Zestril] 10 mg PO DAILY 09/06/17 [History Confirmed 09/06/17 Last Taken Unknown] Omeprazole [PriLOSEC] 20 mg PO ACB 09/06/17 [History Confirmed 09/06/17 Last Taken Unknown] Medical - DS: Hosp Hospital course: Mr. Curtis is a 61 year old F with PMHx of HTN, OA, fatty liver, hep C, and ran out of her [place] (hydrocodone) , and had been taking aspirin for the last couple weeks for her arthritis pain. She began developing watery bloody diarrhea with clumps of blood clots, and developed progressive weakness and lightheadedness in the last several today. Her last bowel movement was very early this morning. She reported similar event in the past and was treated last several years ago at [facility]. Her hemoglobin is at 5.3, with INR 1.0, currently starting on blood transfusion. GI with Dr. Figueroa has been consulted by Dr. Sierra of ER for potential endoscopy to evaluate GI bleed. She is put on Protonix IV at the interim. 09/07/17 No bowel movement or diarrhea overnight since admission. TSH and free T4 evaluation shows hypothyroidism, will start oral replacement. Colonoscopy with Dr. Figueroa today. 09/08/[address] Figueroa, colonoscopy with few sessile polyps ( removed with snare), diverticula without diverticulitis, or sources of bleeding , Dr. Figueroa will proceed with EGD to evaluate GI bleeding tomorrow. Low potassium today, IV replace K rider. Otherwise patient is doing well, no more incidence of melena, hematochezia, nor black tarry stool. We will stop protonic strip. Continue daily Synthroid 25 g after initial dose of 50 g yesterday evening. 09/09/17 had a small blood tinted watery stool per RN report. Otherwise doing well off of protonic drip, Going for today EGD today Secondary discharge diagnosis: GI bleed due to NSAIDs Hypothyroidism Anemia - Time Spent with Patient Total time spent providing and/or coordinating discharge services: Greater than 30 minutes Medical - DS: Exam - Constitutional Vitals: Vital Signs Temp Pulse Pulse Pulse Resp BP BP 09/09/17 08:00 98.2 F 16 131/88 09/09/17 04:05 96 H 144/97 09/09/17 02:01 77 137/87 09/09/17 01:01 78 136/83 09/09/17 00:01 79 16 140/90 09/08/17 23:01 80 15 133/90 09/08/17 22:00 74 16 150/89 09/08/17 20:00 72 16 09/08/17 19:45 76 16 132/69 09/08/17 19:30 74 15 131/70 09/08/17 19:15 74 16 126/77 09/08/17 19:00 98.1 F 72 18 141/91 09/08/17 18:43 79 16 123/71 09/08/17 18:41 81 16 108/72 09/08/17 18:36 86 16 89/60 18 18:34 84 14 66/54 09/08/17 18:27 85 14 68/50 09/08/17 18:26 85 16 73/60 09/08/17 17:53 78 16 155/98 09/08/17 16:12 99.1 F H 18 159/100 09/08/17 12:04 98.2 F 85 18 144/92 Pulse Ox 09/09/17 08:00 94 09/09/17 04:05 95 09/09/17 02:01 93 09/09/17 01:01 93 09/09/17 00:01 95 09/08/17 23:01 92 09/08/17 22:00 92 09/08/17 20:00 94 09/08/17 19:45 94 09/08/17 19:30 92 09/08/17 19:15 93 09/08/17 19:00 94 09/08/17 18:43 92 09/08/17 18:41 92 09/08/17 18:36 93 09/08/17 18:34 97 09/08/17 18:27 99 09/08/17 18:26 99 09/08/17 17:53 96 09/08/17 16:12 96 09/08/17 12:04 100 Intake and Output 09/08/17 09/09/17 09/09/17 21:59 05:59 13:59 Intake Total 120 / 120 200 / 200 Output Total 1275 / 1275 500 / 500 Balance -1155 / -1155 -300 / -300 Intake: Oral 120 / 120 200 / 200 Output: Urine Catheter Amount 550 / 550 500 / 500 Void Amount 725 / 725 Other: Stool Color Blood Tinged Stool Consistency Watery # of times incontinent of 2 Bowels Weight 135 lb General appearance: cooperative, obese - Head Head exam: Present: atraumatic, normocephalic - Eye Eye exam: Present: EOMI Pupils: Present: normal accommodation, PERRL - ENT ENT exam: Present: mucous membranes moist - Neck Neck exam: Present: full ROM. Absent: meningismus - Respiratory Respiratory exam: Present: CTAB. Absent: accessory muscle use - Cardiovascular Cardiovascular exam: Present: +S1, +S2. Absent: gallop, rubs - GI/Abdominal GI/Abdominal exam: Present: soft. Absent: guarding, rebound - Extremities Exam Extremities exam: Present: full ROM. Absent: pedal edema, tenderness Additional comments: No clubbing, cyanosis, or edema - Neurological Exam Neurological exam: Present: alert, CN II-XII intact, oriented X3 - Skin Skin exam: Present: dry, intact, warm Medical - DS: Data Labs on day of discharge: Labs from last 24 hours 09/09/17 09/09/17 06:51 03:25 WBC 8.3 RBC 3.77 L Hgb 11.8 L Hct 34.4 L MCV 91.2 MCH 31.2 MCHC 34.2 RDW 15.6 H Plt Count 232 MPV 6.5 L Gran % 76.7 Lymph % (Auto) 13.0 L [place] % (Auto) 7.4 Eos % (Auto) 2.7 Baso % (Auto) 0.2 Gran # 6.3 Lymph # (Auto) 1.1 L [place] # (Auto) 0.6 Eos # (Auto) 0.2 Baso # (Auto) 0 Sodium 134 Potassium 3.5 Chloride 96 Carbon Dioxide 26 Anion Gap 12.0 BUN 5 L Creatinine 1.0 GFR Calculation 61 Glucose 71 Calcium 8.3 L Total Bilirubin 0.5 AST 41 H ALT 33 Alkaline Phosphatase 57 Total Protein 6.5 Albumin 3.7 Globulin 2.8 Albumin/Globulin Ratio 1.3 Medical - DS: A/P - Patient/Caregiver Discharge Instructions Activity: as per physical therapy - Problem Maintenance (1) GI bleed due to NSAIDs Status: Acute (2) Anemia Status: Acute Qualifiers: Anemia type: unspecified type Qualified Code(s): D64.9 - Anemia, unspecified - Follow up Plan Follow up with: Raven Hanson MD [Primary Care Provider] - Disposition: Home Health Service Prognosis: Fair Rehab Potential: Fair I certify that the patient requires SNF services: Yes Overall status at discharge: patient is progressing back to baseline Medical - DS: Qual - VTE Deep Vein Thrombosis/Pulmonary Embolism Present on Admission: No
[2017-09-09] MEDS ORDERED: PANTOPRAZOLE 40 MG VIAL IV ONE (10:52)
[2017-09-09] MEDS ORDERED: PANTOPRAZOLE 80 MG in 0.9 % SODIUM CHLORIDE 100 ML IV SCH (11:00)
[2017-09-09] MEDS: PANTOPRAZOLE 80 MG in 0.9 % SODIUM CHLORIDE 100 ML IV SCH ×2 (11:24→21:14)
[2017-09-09] MEDS: 0.9 % SODIUM CHLORIDE 250 ML IV SCH (11:27)
[2017-09-09] MEDS ORDERED: POTASSIUM CHLORIDE 40 MEQ in DEXTROSE 5% IN WATER 500 ML IV ONE (11:53)
--- NOTE | 2017-09-09 12:05 | Internal Med Progress Note ---
Medical - PN: Subj Patient information: Note initiated : 09/09/17 at 11:47 am Service Date, if different from initiated Date: [] Patient: Brent Curtis a 61 y/o F admitted on 09/06/17 for Rectal Bleeding, Diarrhea/GI Bleed due to NSAIDs. Chief Complaint: [] Interval history: 61 year old F with PMHx of HTN, OA, fatty liver, hep C, and ran out of her [place]rockmort[place] (hydrocodone), and had been taking aspirin for the last couple weeks for her arthritis pain. She began developing watery bloody diarrhea with clumps of blood clots, and developed progressive weakness and lightheadedness in the last several days. Her last bowel movement was very early this morning. She reported similar event in the past and was treated last several years ago at [facility]. Her hemoglobin is at 5.3, with INR 1.0, currently starting on blood transfusion. GI with Dr. Figueroa has been consulted by Dr. Sierra of ER for potential endoscopy to evaluate GI bleed. She is put on Protonix IV at the interim. 09/07/17 No bowel movement or diarrhea overnight since admission. TSH and free T4 evaluation shows hypothyroidism, will start oral replacement. Colonoscopy with Dr. Figueroa today. 09/08/[address] Figueroa, colonoscopy with few sessile polyps ( removed with snare), diverticula without diverticulitis, or sources of bleeding , Dr. Figueroa will proceed with EGD to evaluate GI bleeding tomorrow. Low potassium today, IV replace K rider. Otherwise patient is doing well, no more incidence of melena, hematochezia, nor black tarry stool. We will stop protonic drip. Continue daily Synthroid 25 g after initial dose of 50 g yesterday evening. 09/09/17 doing well overnight, will have EGD this afternoon. However, she had a maroon stool at roughly 10:45 AM, and is now put back on Protonix bolus follow with protonic drip. Will check EKG and cardiac enzymes, coags, and other electrolytes, Replace as needed. Her K is 3.5 this morning, we will go ahead with 40 mEq of K rider IV., Hold Aldactone for now, resume nothing by mouth until EGD to evaluate. Resume gentle IV fluid. - Constitutional Vitals: Vital Signs Temp Pulse Resp BP Pulse Ox 98.2 F 96 H 16 131/88 94 09/09/17 08:00 09/09/17 04:05 09/09/17 08:00 09/09/17 08:00 09/09/17 08:00 Period Temp Pulse Resp BP Sys/Rae Pulse Ox Last 24 Hr 98.1 F-99.1 F 72-96 14-18 66-159/50-100 92-100 Intake and Output 09/08/17 09/09/17 09/09/17 21:59 05:59 13:59 Intake Total 120 / 120 200 / 200 320 / 320 Output Total 1275 / 1275 500 / 500 75 / 75 Balance -1155 / -1155 -300 / -300 245 / 245 Weight 135 lb Intake & Output: Intake & Output 09/08/17 09/09/17 09/09/17 21:59 05:59 13:59 Intake Total 120 / 120 200 / 200 320 / 320 Output Total 1275 / 1275 500 / 500 75 / 75 Balance -1155 / -1155 -300 / -300 245 / 245 Weight 135 lb Intake: Oral 120 / 120 200 / 200 320 / 320 Output: Urine Catheter Amount 550 / 550 500 / 500 Void Amount 725 / 725 Stool 75 / 75 Other: Meal Breakfast Percent of Meal Consumed 100% Feeding Ability Assist with Tray Set Up Stool Size Large Stool Color Blood Tinged Dark Red Blood Stool Consistency Watery Liquid # Bowel Movements 2 # of times incontinent of 2 1 Bowels - Head Head exam: Present: atraumatic, normocephalic - Eye Eye exam: Present: EOMI Pupils: Present: normal accommodation, PERRL - ENT ENT exam: Present: mucous membranes dry - Neck Neck exam: Present: full ROM. Absent: lymphadenopathy, meningismus - Respiratory Respiratory exam: Present: CTAB. Absent: accessory muscle use - GI/Abdominal GI/Abdominal exam: Present: soft, diminished bowel sounds. Absent: guarding, rebound Additional comments: Holder with yellow urine appears Slight Concentrate - Extremities Exam Extremities exam: Absent: pedal edema, tenderness - Neurological Exam Neurological exam: Present: alert, CN II-XII intact, oriented X3 - Skin Skin exam: Present: dry, intact, warm Medical - PN: Obj Da - Labs CBC & Chem 7: 09/09/17 06:51 09/09/17 03:25 Labs: Abnormal Lab Results 09/09/17 09/09/17 09/08/17 06:51 03:25 03:35 RBC 3.77 L Hgb 11.8 L Hct 34.4 L RDW 15.6 H MPV 6.5 L Lymph % (Auto) 13.0 L Lymph # (Auto) 1.1 L Absolute Retic Potassium 2.9 L* Chloride 95 L BUN 5 L Calcium 8.3 L 8.5 L Transferrin % Sat Ferritin Total Bilirubin GGT AST 41 H 46 H ALT Ammonia Troponin T TSH Free T4 Urine Occult Blood Hyaline Casts 09/07/17 09/07/17 09/06/17 04:00 04:00 23:15 RBC Hgb Hct RDW 15.7 H MPV Lymph % (Auto) Lymph # (Auto) 1.4 L Absolute Retic Potassium 3.1 L Chloride 95 L BUN Calcium 8.1 L Transferrin % Sat Ferritin Total Bilirubin 1.2 H GGT AST 51 H ALT 41 H Ammonia Troponin T 0.05 H* TSH Free T4 Urine Occult Blood Hyaline Casts 09/06/17 09/06/17 09/06/17 22:50 16:55 16:55 RBC Hgb Hct 35.9 L RDW MPV Lymph % (Auto) Lymph # (Auto) Absolute Retic Potassium Chloride BUN Calcium Transferrin % Sat Ferritin Total Bilirubin GGT 39 H AST ALT Ammonia 10 L Troponin T TSH Free T4 Urine Occult Blood Hyaline Casts 09/06/17 09/06/17 09/06/17 14:09 14:03 13:25 RBC Hgb Hct RDW MPV Lymph % (Auto) Lymph # (Auto) Absolute Retic Potassium Chloride BUN Calcium Transferrin % Sat Ferritin Total Bilirubin GGT AST ALT Ammonia Troponin T 0.05 H* TSH Free T4 0.14 L Urine Occult Blood 0.03 A Hyaline Casts 4 H 09/06/17 09/06/17 09/06/17 12:34 12:33 08:43 RBC Hgb Hct RDW MPV Lymph % (Auto) Lymph # (Auto) Absolute Retic 3.3 H Potassium Chloride BUN Calcium Transferrin % Sat 11 L Ferritin 27.6 L Total Bilirubin GGT AST ALT Ammonia Troponin T 0.04 H* TSH 91.46 H Free T4 Urine Occult Blood Hyaline Casts Meds: Medications Hydrocodone Bitart/Acetaminophen (Throckmorton 5/325mg) 1 tab PO Q4-6HP PRN PRN Reason: PAIN LEVEL 3-6 Last Admin: 09/09/17 05:33 Dose: 1 tab Amlodipine Besylate (Norvasc) 5 mg PO DAILY [facility] Last Admin: 09/09/17 09:25 Dose: 5 mg Diagnostic Test (Pha) (Accu-Chek) 1 each FS ONCE [facility] Stop: 09/09/17 16:02 Last Admin: 09/09/17 08:21 Dose: 1 each Fluoxetine HCl (Prozac) 20 mg PO DAILY [facility] Last Admin: 09/09/17 09:25 Dose: 20 mg Pantoprazole Sodium 80 mg/ (Sodium Chloride) 100 mls @ 10 mls/hr IV Q10H [facility] PRN Reason: 8 MG/HR Last Admin: 09/09/17 11:24 Dose: 8 mg/hr, 10 mls/hr Sodium Chloride (Sodium Chloride 0.9%) 250 mls @ 20 mls/hr IV .[id number] [facility] Last Admin: 09/09/17 11:27 Dose: 10 mls/hr Labetalol HCl (Trandate) 10 mg IV Q2HP PRN PRN Reason: uncontrolled hypertension Levothyroxine Sodium (Synthroid) 25 mcg PO QAMAC [facility] Last Admin: 09/09/17 07:41 Dose: 25 mcg Lisinopril (Zestril) 10 mg PO DAILY [facility] Last Admin: 09/09/17 09:25 Dose: 10 mg Lorazepam (Ativan) 0.5 mg IV Q6HP PRN PRN Reason: ANXIETY/SEDATION Last Admin: 09/08/17 11:09 Dose: 0.5 mg Midazolam HCl (Versed) 0 mg IV ONCE [facility] Stop: 09/09/17 16:02 Nitroglycerin (Nitro-Bid) 1 gm TD Q6HX2R@1800 [facility] Last Admin: 09/09/17 05:34 Dose: 1 gm Ondansetron HCl (Zofran) 4 mg IV Q4HP PRN PRN Reason: Nausea And Vomiting Last Admin: 09/08/17 10:35 Dose: 4 mg Propofol (Diprivan) 0 mg IV ONCE [facility] Stop: 09/09/17 16:02 Sodium Chloride (Saline Flush) 10 ml IV Q8 [facility] Last Admin: 09/09/17 11:27 Dose: 10 ml Spironolactone (Aldactone) 100 mg PO DAILY [facility] Last Admin: 09/09/17 09:25 Dose: 100 mg Medical - PN: A/P - Time Spent With Patient Total time spent is greater than 50% in coordination of care (as documented) at patient's floor/unit and/or counseling patient: Greater than 35 minutes (1) GI bleed due to NSAIDs Status: Acute Current Visit: Yes (2) Hypotension due to blood loss Status: Acute Current Visit: Yes (3) Anemia Status: Acute Assessment and plan: s/p 4 units PRBC transfusion. Current Visit: Yes (4) Hypothyroidism Status: Acute Current Visit: Yes - Narrative A/P Narrative: She had recurrence of her GI bleed off of Protonix drip this morning, colonoscopy yesterday with diverticula and few sessile polyps (resected/snared). We will check serial troponins, replace potassium, check EKG, resume IV fluid. She will have EGD this afternoon with Dr. Figueroa to evaluate. She likely will need to be on Protonix drip for 48 hours. Also will recheck H&H with next troponin checked at ~8 PM Medical - PN: Qual - Stroke Symptom Onset Unknown: No - VTE Deep Vein Thrombosis/Pulmonary Embolism Present on Admission: No
[2017-09-09 13:12] LABS: Creatine Kinase MB 5.5 ng/ml (0-2.9)
[2017-09-09] MEDS: DEXTROSE 5%-NS 1,000 ML IV SCH ×2 (13:19→23:28)
[2017-09-09] MEDS ORDERED: MIDAZOLAM 2 MG/2 ML VIAL ONE (15:46)
[2017-09-09] MEDS ORDERED: PROPOFOL 20 ML IV ONE (15:46)
--- NOTE | 2017-09-09 16:37 | Operative Note ---
DATE OF OPERATION: 09/09/2017 PREPROCEDURE DIAGNOSES: 1. Upper GI bleed secondary to ulcer caused by nonsteroidal anti-inflammatory drugs. 2. ? varices. POSTPROCEDURE DIAGNOSES: 1. Gastritis. Some areas with changes consistent with a partially-healed erosion. 2. Egitis, probable reflux. 3. Stricture and scarring EG junction. PROCEDURE: Esophagogastroduodenoscopy with biopsy for CLOtest and histopathology and dilation over a guidewire. SURGEON: Surjit Mahoney M.D. INSTRUMENT USED: Olympus LORAINE [id number] endoscope and 51-Ku[place]i or 17 mm Somali dilator passed over a guidewire. CLOtest RESULTS: Negative SPECIMENS OBTAINED: Biopsies from antrum for histopathology and for CLOtest. Biopsies from distal esophagus. INDICATIONS FOR PROCEDURE: The patient is a 61-year-old lady whose primary care physician is Dr. Raven Hanson. The patient is admitted under the courtesy of one of the hospitalist, Dr. Carolina. Allegedly, the patient had some reddish blood per rectum for about a week. Hemoglobin was quite low. It may have been down to the 5 gram range. Four units of blood were transfused. I believe the hemoglobin is back up to 12. Occasionally, some examiners thought there was some dark stool consistent with an upper GI source. However, most of the information I had received suggested probably a lower GI source. Colonoscopy was done yesterday. This showed three polyps, many diverticula, some hemorrhoids. There was no active bleeding. No diverticulum was noted to be inflamed. The patient has not had alcohol for years. However, per history she did abuse alcohol in the past. She also, I believe has been using a lot of nonsteroidal anti-inflammatory drugs. EGD is indicated to evaluate for pathology that may explain her blood loss and to evaluate for ulcers that may have been from her nonsteroidal anti-inflammatory drugs. Furthermore, we will be alert for varices in the esophagus. INFORMED CONSENT: The procedure was reviewed with the patient. The patient had no further questions and accepts the risks and benefits thereof. One of the risks that were discussed included . Additional risks that were also discussed included bleeding, reaction to medication, possible perforation and possible need for surgery. IV MEDICATIONS USED: Versed 2 mg and propofol 180 mg. FINDINGS: ESOPHAGUS: Proximal and mid esophagus: Normal. Distal esophagus: There was some scarring and erythema extending up about 1 to 2 cm. There was increased number of fine blood vessels. Biopsies were taken. EG junction was around 40 cm. There was scarring and mild stricture. A 17 mm Somali dilator was passed with no significant resistance. STOMACH: Cardia, fundus and body: Normal. Antrum: There were several scattered areas of erythema and edema. Some had central depression consistent with partially-healed erosions. There were also linear areas of erythema and edema noted. No definite ulcers were seen. No blood was noted. Biopsies were taken for histopathology and CLOtest. PYLORUS: Normal. DUODENUM: This appeared normal. After the EGD was completed, a 17 mm Somali dilator was passed over a guidewire with relative ease. RECOMMENDATIONS: PPI medications such as omeprazole 20 mg one p.o. q.a.m. Prescription can be allowed for #30 with one refill. After 2 months, I would like her to stop the PPI medication. She should follow antireflux measures probably for the rest of her life. Allegedly, there has been some reddish-material per rectum. However, the prep was somewhat colored that looked reddish. This was guaiac negative yesterday. We will ask the staff to guaiac the material per rectum. If this is positive and she continues bleeding, a larger amount repeat colonoscopy may be necessary to evaluate for bleeding from a polypectomy site or maybe a diverticulum that was not noticed yesterday. Office appointment in about 2 to 4 weeks would be of benefit. If the patient continues bleeding and we do not find a site on repeat colonoscopy, a tagged red blood cell loss study may be of benefit. Sedation time 1542 to 1615. Please refer to the preprocedure nurse's notes, procedure flowsheet, procedure record, and post-procedure assessment for details of the sedation including the pre-, intra-, and post-service work. CRD:polo Job ID: [id number] Doc ID: [id number] Surjit Carolina MD [facility]
[2017-09-09 20:51] LABS: Basophils # (Auto) 0 K/mcL (0.0-0.3); Basophils % (Auto) 0.4 % (0.0-2.0); Eosinophils # (Auto) 0.2 K/mcL (0.0-0.7); Granulocytes % (Auto) 74.2 % (38.0-78.0); Lymphocytes % (Auto) 15.1 % (15.5-49.0); Mean Cell Volume 91.6 fL (80.0-100.0); Mean Corpuscular Hemoglobin 31.2 pg (26.0-34.0); Monocytes # (Auto) 0.5 K/mcL (0.1-0.9); Monocytes % (Auto) 7.3 % (1.0-12.0); Platelet Count 217 K/mcL (140-440); RBC 3.17 M/mcL (4.00-5.20); Red Cell Distribution Width 15.9 % (11.5-14.5)
[2017-09-09 21:05] LABS: Creatine Kinase 212 IU/L (24-170); Creatine Kinase MB 7.8 ng/ml (0-2.9)
[2017-09-10 06:23] LABS: Basophils # (Auto) 0 K/mcL (0.0-0.3); Basophils % (Auto) 0.5 % (0.0-2.0); Eosinophils # (Auto) 0.3 K/mcL (0.0-0.7); Eosinophils % (Auto) 4.3 % (0.0-7.0); Granulocytes % (Auto) 72.2 % (38.0-78.0); Lymphocytes # (Auto) 1.1 K/mcL (1.5-4.8); Lymphocytes % (Auto) 15.5 % (15.5-49.0); Mean Cell Volume 92.6 fL (80.0-100.0); Mean Corpuscular Hemoglobin 31.5 pg (26.0-34.0); Monocytes # (Auto) 0.5 K/mcL (0.1-0.9); Monocytes % (Auto) 7.5 % (1.0-12.0); Platelet Count 217 K/mcL (140-440); RBC 3.19 M/mcL (4.00-5.20); Red Cell Distribution Width 15.5 % (11.5-14.5)
[2017-09-10 06:51] LABS: ALT/SGPT 23 U/l (0-40); Albumin 3.2 gm/dL (3.2-5.2); Albumin/Globulin Ratio 1.3 (1.0-2.3); Alkaline Phosphatase 48 U/L (39-117); Blood Urea Nitrogen 5 mg/dl (8-23)
[2017-09-10] MEDS ORDERED: CALCIUM GLUCONATE 4.65 MEQ/10 ML VIAL IV ONE (07:07)
--- NOTE | 2017-09-10 07:11 | Internal Med Progress Note ---
Medical - PN: Subj Patient information: Note initiated : 09/10/17 at 7:10 am Service Date, if different from initiated Date: [] Patient: Brent Curtis a 61 y/o F admitted on 09/06/17 for Rectal Bleeding, Diarrhea/GI Bleed due to NSAIDs. Chief Complaint: [] Interval history: 61 year old F with PMHx of HTN, OA, fatty liver, hep C, and ran out of her Emmet (hydrocodone), and had been taking aspirin for the last couple weeks for her arthritis pain. She began developing watery bloody diarrhea with clumps of blood clots, and developed progressive weakness and lightheadedness in the last several days. Her last bowel movement was very early this morning. She reported similar event in the past and was treated last several years ago at [facility]. Her hemoglobin is at 5.3, with INR 1.0, currently starting on blood transfusion. GI with Dr. Figueroa has been consulted by Dr. Sierra of ER for potential endoscopy to evaluate GI bleed. She is put on Protonix IV at the interim. 09/07/17 No bowel movement or diarrhea overnight since admission. TSH and free T4 evaluation shows hypothyroidism, will start oral replacement. Colonoscopy with Dr. Figueroa today. 09/08/[address] Figueroa, colonoscopy with few sessile polyps ( removed with snare), diverticula without diverticulitis, or sources of bleeding , Dr. Figueroa will proceed with EGD to evaluate GI bleeding tomorrow. Low potassium today, IV replace K rider. Otherwise patient is doing well, no more incidence of melena, hematochezia, nor black tarry stool. We will stop protonic drip. Continue daily Synthroid 25 g after initial dose of 50 g yesterday evening. 09/09/17 doing well overnight, will have EGD this afternoon. However, she had a maroon stool at roughly 10:45 AM, and is now put back on Protonix bolus follow with protonic drip. Will check EKG and cardiac enzymes, coags, and other electrolytes, Replace as needed. Her K is 3.5 this morning, we will go ahead with 40 mEq of K rider IV., Hold Aldactone for now, resume nothing by mouth until EGD to evaluate. Resume gentle IV fluid. 09/10/17 She had 2 maroon stools while off of Protonix drip. EGD yesterday did not reveal active significant source of bleeding per Dr. Mahoney, only gastritis and esophagitis. No more maroon stools or evidence of bleeding after resumption of her Protonix drip, which will need to be on for at least 48 hours. Will monitor closely, guaiac all stools. If bleeding recur, Dr. Mahoney plans to repeat a larger prep colonoscopy. At the meantime, she's getting and tolerating levothyroxine replacement therapy for her new discoverered hypothyroidism. General appearance: cooperative, obese - Head Head exam: Present: atraumatic, normocephalic - Eye Eye exam: Present: EOMI Pupils: Present: normal accommodation, PERRL - ENT ENT exam: Present: mucous membranes moist - Neck Neck exam: Present: full ROM. Absent: meningismus - Respiratory Respiratory exam: Present: CTAB. Absent: accessory muscle use - Cardiovascular Cardiovascular exam: Present: +S1, +S2. Absent: gallop, rubs - GI/Abdominal GI/Abdominal exam: Present: soft. Absent: guarding, reboundShe is currently tolerating and getting levothyroxine replacement for her new discovered hypothyroidism - Extremities Exam Extremities exam: Present: full ROM. Absent: pedal edema, tenderness Additional comments: No clubbing, cyanosis, or edema - Neurological Exam Neurological exam: Present: alert, CN II-XII intact, oriented X3 - Skin Skin exam: Present: dry, intact, warm - Constitutional Vitals: Vital Signs Temp Pulse Resp BP Pulse Ox 97.9 F 77 17 133/88 95 09/10/17 04:26 09/09/17 19:21 09/10/17 04:26 09/10/17 04:26 09/10/17 04:26 Period Temp Pulse Resp BP Sys/Rae Pulse Ox Last 24 Hr 97.9 F-98.3 F 72-88 14-18 92-145/61-93 92-98 Intake and Output 09/09/17 09/10/17 09/10/17 21:59 05:59 13:59 Intake Total 1608 / 1608 Output Total 200 / 200 625 / 625 Balance 1408 / 1408 -625 / -625 Weight 136 lb 8 oz Intake & Output: Intake & Output 09/09/17 09/10/17 09/10/17 21:59 05:59 13:59 Intake Total 1608 / 1608 Output Total 200 / 200 625 / 625 Balance 1408 / 1408 -625 / -625 Weight 136 lb 8 oz Intake: IV 1608 / 1608 Dextrose 5%-Ns IV Solution 1, 1000 / 1000 000 ml @ 80 mls/hr IV .[id number] [facility] Rx#:[id number] Protonix 80 mg In Sodium 88 / 88 Chloride 0.9% 100 ml @ 8 MG/HR 10 mls/hr IV Q10H [facility] Rx#: [id number] Potassium Chloride 40 Meq In 307 / 307 Dextrose 5% in Water 500 ml @ 130 mls/hr IV ONCE ONE Rx#: [id number] Output: Urine Catheter Amount 200 / 200 625 / 625 Medical - PN: Obj Da - Labs CBC & Chem 7: 09/10/17 03:39 09/12/17 03:38 Labs: Abnormal Lab Results 09/10/17 09/10/17 09/09/17 03:40 03:39 20:15 RBC 3.19 L 3.17 L Hgb 10.1 L 9.9 L Hct 29.6 L 29.0 L RDW 15.5 H 15.9 H MPV 7.1 L 6.8 L Lymph % (Auto) 15.1 L Lymph # (Auto) 1.1 L 1.0 L Potassium Chloride BUN 5 L Calcium 7.9 L AST Total Creatine Kinase CK-MB (CK-2) Troponin T NT-Pro-B Natriuret Pep Total Protein 5.6 L 09/09/17 09/09/17 09/09/17 20:15 20:15 12:10 RBC Hgb Hct RDW MPV Lymph % (Auto) Lymph # (Auto) Potassium Chloride BUN Calcium AST Total Creatine Kinase 212 H CK-MB (CK-2) 7.8 H Troponin T 0.04 H* NT-Pro-B Natriuret Pep 264.2 H Total Protein 09/09/17 09/09/17 09/09/17 12:10 12:10 06:51 RBC 3.77 L Hgb 11.8 L Hct 34.4 L RDW 15.6 H MPV 6.5 L Lymph % (Auto) 13.0 L Lymph # (Auto) 1.1 L Potassium Chloride BUN Calcium AST Total Creatine Kinase 185 H CK-MB (CK-2) 5.5 H Troponin T 0.04 H* NT-Pro-B Natriuret Pep Total Protein 09/09/17 09/08/17 03:25 03:35 RBC Hgb Hct RDW MPV Lymph % (Auto) Lymph # (Auto) Potassium 2.9 L* Chloride 95 L BUN 5 L Calcium 8.3 L 8.5 L AST 41 H 46 H Total Creatine Kinase CK-MB (CK-2) Troponin T NT-Pro-B Natriuret Pep Total Protein Meds: Medications Hydrocodone Bitart/Acetaminophen (Emmet 5/325mg) 1 tab PO Q4-6HP PRN PRN Reason: PAIN LEVEL 3-6 Last Admin: 09/09/17 05:33 Dose: 1 tab Amlodipine Besylate (Norvasc) 5 mg PO DAILY [facility] Last Admin: 09/09/17 09:25 Dose: 5 mg Calcium Gluconate (Calcium Gluconate) 4.65 meq IV ONCE [facility] Stop: 09/10/17 07:08 Fluoxetine HCl (Prozac) 20 mg PO DAILY [facility] Last Admin: 09/09/17 09:25 Dose: 20 mg Pantoprazole Sodium 80 mg/ (Sodium Chloride) 100 mls @ 10 mls/hr IV Q10H [facility] PRN Reason: 8 MG/HR Last Admin: 09/09/17 21:14 Dose: 8 mg/hr, 10 mls/hr Sodium Chloride (Sodium Chloride 0.9%) 250 mls @ 20 mls/hr IV .[id number] [facility] Last Infusion: 09/09/17 13:20 Dose: 0 mls/hr Dextrose/Sodium Chloride (Dextrose 5%-Ns Iv Solution) 1,000 mls @ 80 mls/hr IV .[id number] [facility] Stop: 09/10/17 13:44 Last Admin: 09/09/17 23:28 Dose: 80 mls/hr Labetalol HCl (Trandate) 10 mg IV Q2HP PRN PRN Reason: uncontrolled hypertension Levothyroxine Sodium (Synthroid) 25 mcg PO QAMAC [facility] Last Admin: 09/09/17 07:41 Dose: 25 mcg Lisinopril (Zestril) 10 mg PO DAILY [facility] Last Admin: 09/09/17 09:25 Dose: 10 mg Lorazepam (Ativan) 0.5 mg IV Q6HP PRN PRN Reason: ANXIETY/SEDATION Last Admin: 09/08/17 11:09 Dose: 0.5 mg Nitroglycerin (Nitro-Bid) 1 gm TD Q6HX2R@1800 [facility] Last Admin: 09/09/17 17:48 Dose: Not Given Ondansetron HCl (Zofran) 4 mg IV Q4HP PRN PRN Reason: Nausea And Vomiting Last Admin: 09/08/17 10:35 Dose: 4 mg Sodium Chloride (Saline Flush) 10 ml IV Q8 [facility] Last Admin: 09/09/17 21:00 Dose: 10 ml Medical - PN: A/P - Time Spent With Patient Total time spent is greater than 50% in coordination of care (as documented) at patient's floor/unit and/or counseling patient: (1) GI bleed due to NSAIDs Status: Acute Current Visit: Yes (2) Hypotension due to blood loss Status: Acute Current Visit: Yes (3) Anemia Status: Acute Assessment and plan: s/p 4 units PRBC transfusion. Current Visit: Yes (4) Hypothyroidism Status: Acute Current Visit: Yes Medical - PN: Qual - Stroke Symptom Onset Unknown: No - VTE Deep Vein Thrombosis/Pulmonary Embolism Present on Admission: No
[2017-09-10] MEDS: NITROGLYCERIN 1 GM OINT.TOP TD SCH ×3 (07:16→17:12)
[2017-09-10] MEDS: LEVOTHYROXINE 25 MCG TABLET PO SCH (07:16)
[2017-09-10] MEDS: 0.9 % SODIUM CHLORIDE 250 ML IV SCH ×3 (07:17→18:46)
[2017-09-10] MEDS: 0.9 % SODIUM CHLORIDE 10 ML SYRINGE IV SCH ×2 (07:17→14:00)
[2017-09-10] MEDS: PANTOPRAZOLE 80 MG in 0.9 % SODIUM CHLORIDE 100 ML IV SCH ×2 (08:02→18:45)
[2017-09-10] MEDS: HYDROcodone/APAP 5/325MG TABLET PO PRN ×2 (08:07→16:35)
[2017-09-10] MEDS: LISINOPRIL 10 MG TABLET PO SCH (08:08)
[2017-09-10] MEDS: amLODIPine 5 MG TABLET PO SCH (08:08)
[2017-09-10] MEDS: FLUoxetine HCL 20 MG CAPSULE PO SCH (08:08)
[2017-09-10] MEDS ORDERED: CALCIUM CHLORIDE IV ONE (08:30)
[2017-09-10] MEDS ORDERED: DEXTROSE 5% IV ONE (08:30)
[2017-09-10] MEDS ORDERED: WATER IV ONE (08:30)
--- NOTE | 2017-09-10 12:20 | Surgical Pathology Report ---
HISTOLOGY SPECIMEN MICROSCOPIC DIAGNOSIS SPECIMEN A - STOMACH, ANTRUM, BIOPSY: -- GASTRIC ANTRAL MUCOSA WITH MINIMAL CHRONIC INFLAMMATION. -- NO HELICOBACTER ORGANISMS IDENTIFIED ON ALCIAN YELLOW STAIN (ADEQUATE TECHNICAL CONTROL). SPECIMEN B - ESOPHAGUS, DISTAL, BIOPSY: -- GASTROESOPHAGEAL JUNCTIONAL MUCOSA WITH MILD CHRONIC INFLAMMATION. -- NO INTESTINAL (GOBLET CELL) METAPLASIA IDENTIFIED ON ALCIAN BLUE STAIN (ADEQUATE TECHNICAL CONTROL). -- SQUAMOUS EPITHELIUM WITH RARE INTRAEPITHELIAL NEUTROPHILS (UP TO 2/hpf). (DMT:nasir) CLINICAL HISTORY GI bleed. PROCEDURAL IMPRESSION Gastritis; esophagitis; reflux; stricture EG junction. GROSS DESCRIPTION Specimen A: Received in formalin labeled antrum biopsies, are three nash-pink tissue fragments from 0.3 to 0.6 cm. Entirely submitted in one cassette. Specimen B: Received in formalin labeled distal esophagus biopsies, are three alcazar-nash tissue fragments from 0.2 to 0.3 cm. Entirely submitted in one cassette. (SCB:adj) Electronically Signed by: Zeeshan Taylor M.D.
--- NOTE | 2017-09-10 12:20 | Surgical Pathology Report ---
HISTOLOGY SPECIMEN MICROSCOPIC DIAGNOSIS SPECIMEN A - COLON, TRANSVERSE, POLYPECTOMY: -- TUBULAR ADENOMA. -- STALK MARGIN FREE OF ADENOMATOUS CHANGE. SPECIMEN B - COLON, DESCENDING, POLYPECTOMY: -- HYPERPLASTIC POLYP. SPECIMEN C - COLON, SIGMOID, POLYPECTOMY: -- HYPERPLASTIC POLYP. (DMT:nasir) CLINICAL HISTORY Lower GI bleed for 1 week; history of ETOH abuse. PROCEDURAL IMPRESSION Polyps. GROSS DESCRIPTION Specimen A: Received in formalin labeled A transverse colon polyp, is a 0.7 x 0.5 x 0.3 cm nash-brown tissue fragment. The possible margin is inked black and it is trisected. Totally submitted - one cassette. Specimen B: Received in formalin labeled B descending colon polyp, is a 0.7 cm nash tissue fragment. Totally submitted - one cassette. Specimen C: Received in formalin labeled C sigmoid colon polyp, is a 0.2 cm pale nash tissue fragment. Totally submitted - one cassette. (STS:sln) Electronically Signed by: Zeeshan Taylor M.D.
[2017-09-11] MEDS: 0.9 % SODIUM CHLORIDE 10 ML SYRINGE IV SCH ×4 (02:50→21:19)
[2017-09-11] MEDS: 0.9 % SODIUM CHLORIDE 250 ML IV SCH ×2 (02:51→14:13)
[2017-09-11 04:55] LABS: ALT/SGPT 23 U/l (0-40); Albumin 3.1 gm/dL (3.2-5.2); Albumin/Globulin Ratio 1.2 (1.0-2.3); Alkaline Phosphatase 47 U/L (39-117); Basophils # (Auto) 0 K/mcL (0.0-0.3); Basophils % (Auto) 0.7 % (0.0-2.0); Bilirubin,Direct < 0.2 mg/dL (0.0-0.3); Blood Urea Nitrogen 3 mg/dl (8-23); Eosinophils # (Auto) 0.4 K/mcL (0.0-0.7); Eosinophils % (Auto) 6.6 % (0.0-7.0); Gamma Glutamyl Transpeptidase 31 U/L (5-36); Granulocytes % (Auto) 65.3 % (38.0-78.0); Lymphocytes # (Auto) 1.3 K/mcL (1.5-4.8); Lymphocytes % (Auto) 20.2 % (15.5-49.0); Mean Cell Volume 91.9 fL (80.0-100.0); Mean Corpuscular HGB Conc 34.1 g/dL (31.0-36.0); Mean Corpuscular Hemoglobin 31.3 pg (26.0-34.0); Monocytes # (Auto) 0.5 K/mcL (0.1-0.9); Monocytes % (Auto) 7.2 % (1.0-12.0); Platelet Count 221 K/mcL (140-440); RBC 3.23 M/mcL (4.00-5.20); Red Cell Distribution Width 15.6 % (11.5-14.5); Uric Acid 3.2 mg/dL (2.5-8.0)
[2017-09-11] MEDS: PANTOPRAZOLE 80 MG in 0.9 % SODIUM CHLORIDE 100 ML IV SCH (05:23)
[2017-09-11] MEDS ORDERED: MAGNESIUM SULFATE 2 GM/50 ML BAG IV ONE (06:53)
[2017-09-11] MEDS: LEVOTHYROXINE 25 MCG TABLET PO SCH (07:23)
[2017-09-11] MEDS: LISINOPRIL 10 MG TABLET PO SCH (08:59)
[2017-09-11] MEDS: amLODIPine 5 MG TABLET PO SCH (08:59)
[2017-09-11] MEDS: FLUoxetine HCL 20 MG CAPSULE PO SCH (08:59)
[2017-09-11] MEDS: NITROGLYCERIN 1 GM OINT.TOP TD SCH (09:03)
[2017-09-11] MEDS: PANTOPRAZOLE 40 MG TABLET PO SCH ×2 (09:03→16:32)
[2017-09-11] MEDS: HYDROcodone/APAP 5/325MG TABLET PO PRN ×3 (09:29→21:19)
--- NOTE | 2017-09-11 10:29 | Internal Med Progress Note ---
Medical - PN: Subj Patient information: Note initiated : 09/11/17 at 10:27 am Service Date, if different from initiated Date: [] Patient: Brent Curtis a 61 y/o F admitted on 09/06/17 for Rectal Bleeding, Diarrhea/GI Bleed due to NSAIDs. Chief Complaint: [] Interval history: 61 year old F with PMHx of HTN, OA, fatty liver, hep C, and ran out of her [place] (hydrocodone), and had been taking aspirin for the last couple weeks for her arthritis pain. She began developing watery bloody diarrhea with clumps of blood clots, and developed progressive weakness and lightheadedness in the last several days. Her last bowel movement was very early this morning. She reported similar event in the past and was treated last several years ago at [facility]. Her hemoglobin is at 5.3, with INR 1.0, currently starting on blood transfusion. GI with Dr. Figueroa has been consulted by Dr. Sierra of ER for potential endoscopy to evaluate GI bleed. She is put on Protonix IV at the interim. 09/07/17 No bowel movement or diarrhea overnight since admission. TSH and free T4 evaluation shows hypothyroidism, will start oral replacement. Colonoscopy with Dr. Figueroa today. 09/08/[address] Figueroa, colonoscopy with few sessile polyps ( removed with snare), diverticula without diverticulitis, or sources of bleeding , Dr. Figueroa will proceed with EGD to evaluate GI bleeding tomorrow. Low potassium today, IV replace K rider. Otherwise patient is doing well, no more incidence of melena, hematochezia, nor black tarry stool. We will stop protonic drip. Continue daily Synthroid 25 g after initial dose of 50 g yesterday evening. 09/09/17 doing well overnight, will have EGD this afternoon. However, she had a maroon stool at roughly 10:45 AM, and is now put back on Protonix bolus follow with protonic drip. Will check EKG and cardiac enzymes, coags, and other electrolytes, Replace as needed. Her K is 3.5 this morning, we will go ahead with 40 mEq of K rider IV., Hold Aldactone for now, resume nothing by mouth until EGD to evaluate. Resume gentle IV fluid. 09/11-patient doing well. No overnight events. No further rectal bleed. Protonix drip DC'd and transition to oral Protonix 40 twice daily. Advancing diet to full liquids. Stable hemodynamics, vitals and labs. Hemoglobin 10.2. Ongoing physical therapy. Anticipate SNF transfer. DC Holder's catheter. Anticipate discharge in 24 hours if no further bleed. EGD revealed Gastritis along with some areas with changes consistent with a partially-healed erosion. - Constitutional Vitals: Vital Signs Temp Pulse Resp BP Pulse Ox 98.9 F 78 16 135/86 95 09/11/17 07:30 09/11/17 07:30 09/11/17 07:30 09/11/17 07:30 09/11/17 07:30 Period Temp Pulse Resp BP Sys/Rae Pulse Ox Last 24 Hr 97.4 F-98.9 F 77-87 16-18 107-144/66-93 94-96 Intake and Output 09/10/17 09/11/17 09/11/17 21:59 05:59 13:59 Intake Total 1043 / 1043 460 / 460 26 / 26 Output Total 1000 / 1000 1525 / 1525 Balance 43 / 43 -1065 / -1065 26 / 26 Weight 138 lb Intake & Output: Intake & Output 09/10/17 09/11/17 09/11/17 21:59 05:59 13:59 Intake Total 1043 / 1043 460 / 460 26 / 26 Output Total 1000 / 1000 1525 / 1525 Balance 43 / 43 -1065 / -1065 26 / 26 Weight 138 lb Intake: IV 83 / 83 100 / 100 26 / 26 Sodium Chloride 0.9% 250 ml @ 0 / 0 20 mls/hr IV .[id number] Rx#: [id number] Protonix 80 mg In Sodium 83 / 83 100 / 100 26 / 26 Chloride 0.9% 100 ml @ 8 MG/HR 10 mls/hr IV Q10H ROBB Rx#: [id number] Oral 960 / 960 360 / 360 Output: Urine Catheter Amount 1000 / 1000 1525 / 1525 Other: Meal Dinner Percent of Meal Consumed 100% Feeding Ability Assist with Tray Set Up General appearance: cooperative, no acute distress Exam: Alert oriented nonlabored breathing Nondistended abdomen Foleys draining clear urine Medical - PN: Obj Da - Labs CBC & Chem 7: 09/10/17 03:39 09/10/17 03:40 Labs: Abnormal Lab Results 09/11/17 09/11/17 09/10/17 03:33 03:33 03:40 RBC 3.23 L Hgb 10.1 L Hct 29.7 L RDW 15.6 H MPV 7.0 L Lymph % (Auto) Lymph # (Auto) 1.3 L Sodium 131 L BUN 3 L 5 L Calcium 8.1 L 7.9 L Phosphorus 2.2 L Magnesium 1.5 L AST Total Creatine Kinase CK-MB (CK-2) Troponin T NT-Pro-B Natriuret Pep Total Protein 5.7 L 5.6 L Albumin 3.1 L 09/10/17 09/09/17 09/09/17 03:39 20:15 20:15 RBC 3.19 L 3.17 L Hgb 10.1 L 9.9 L Hct 29.6 L 29.0 L RDW 15.5 H 15.9 H MPV 7.1 L 6.8 L Lymph % (Auto) 15.1 L Lymph # (Auto) 1.1 L 1.0 L Sodium BUN Calcium Phosphorus Magnesium AST Total Creatine Kinase CK-MB (CK-2) Troponin T 0.04 H* NT-Pro-B Natriuret Pep Total Protein Albumin 09/09/17 09/09/17 09/09/17 20:15 12:10 12:10 RBC Hgb Hct RDW MPV Lymph % (Auto) Lymph # (Auto) Sodium BUN Calcium Phosphorus Magnesium AST Total Creatine Kinase 212 H CK-MB (CK-2) 7.8 H Troponin T 0.04 H* NT-Pro-B Natriuret Pep 264.2 H Total Protein Albumin 09/09/17 09/09/17 09/09/17 12:10 06:51 03:25 RBC 3.77 L Hgb 11.8 L Hct 34.4 L RDW 15.6 H MPV 6.5 L Lymph % (Auto) 13.0 L Lymph # (Auto) 1.1 L Sodium BUN 5 L Calcium 8.3 L Phosphorus Magnesium AST 41 H Total Creatine Kinase 185 H CK-MB (CK-2) 5.5 H Troponin T NT-Pro-B Natriuret Pep Total Protein Albumin Meds: Medications Hydrocodone Bitart/Acetaminophen ([place] 5/325mg) 1 tab PO Q4-6HP PRN PRN Reason: PAIN LEVEL 3-6 Last Admin: 09/11/17 09:29 Dose: 1 tab Amlodipine Besylate (Norvasc) 5 mg PO DAILY REPLACED BY [facility] Last Admin: 09/11/17 08:59 Dose: 5 mg Fluoxetine HCl (Prozac) 20 mg PO DAILY REPLACED BY [facility] Last Admin: 09/11/17 08:59 Dose: 20 mg Sodium Chloride (Sodium Chloride 0.9%) 250 mls @ 20 mls/hr IV .[id number] REPLACED BY [facility] Last Admin: 09/11/17 02:51 Dose: Not Given Labetalol HCl (Trandate) 10 mg IV Q2HP PRN PRN Reason: uncontrolled hypertension Levothyroxine Sodium (Synthroid) 25 mcg PO QAMAC REPLACED BY [facility] Last Admin: 09/11/17 07:23 Dose: 25 mcg Lisinopril (Zestril) 10 mg PO DAILY REPLACED BY [facility] Last Admin: 09/11/17 08:59 Dose: 10 mg Lorazepam (Ativan) 0.5 mg IV Q6HP PRN PRN Reason: ANXIETY/SEDATION Last Admin: 09/08/17 11:09 Dose: 0.5 mg Ondansetron HCl (Zofran) 4 mg IV Q4HP PRN PRN Reason: Nausea And Vomiting Last Admin: 09/08/17 10:35 Dose: 4 mg Pantoprazole Sodium (Protonix) 40 mg PO BIDAC REPLACED BY [facility] Last Admin: 09/11/17 09:03 Dose: Not Given Sodium Chloride (Saline Flush) 10 ml IV Q8 REPLACED BY [facility] Last Admin: 09/11/17 08:59 Dose: Not Given Medical - PN: A/P - Time Spent With Patient Total time spent is greater than 50% in coordination of care (as documented) at patient's floor/unit and/or counseling patient: 15 - 24 minutes - Narrative A/P Narrative: * Upper GI bleed secondary to esophageal erosions/gastritis secondary to NSAID- currently improved. Advancing diet. Continue twice-daily PPI as per GI recommendations. * Blood loss anemia no further drop in hematocrit. 10.1. * History of hypertension continue lisinopril/labetalol/amlodipine * Chronic pain on hydrocodone * Anxiety disorder on fluoxetine/as needed Ativan * Full code * Prophylaxis SCDs Plan * Continue twice-daily PPI * Advance diet as tolerated * Possible discharge in 24 hours * Pre-existing medical condition management as above * Physical therapy Medical - PN: Qual - Stroke Symptom Onset Unknown: No - VTE Deep Vein Thrombosis/Pulmonary Embolism Present on Admission: No
[2017-09-12] MEDS: HYDROcodone/APAP 5/325MG TABLET PO PRN ×2 (02:03→07:47)
[2017-09-12] MEDS: 0.9 % SODIUM CHLORIDE 10 ML SYRINGE IV SCH ×2 (05:38→13:00)
[2017-09-12 06:14] LABS: ALT/SGPT 25 U/l (0-40); Albumin 3.2 gm/dL (3.2-5.2); Albumin/Globulin Ratio 1.2 (1.0-2.3); Alkaline Phosphatase 52 U/L (39-117); Bilirubin,Direct < 0.2 mg/dL (0.0-0.3); Blood Urea Nitrogen 6 mg/dl (8-23); Gamma Glutamyl Transpeptidase 33 U/L (5-36); Uric Acid 2.7 mg/dL (2.5-8.0)
[2017-09-12] MEDS: FLUoxetine HCL 20 MG CAPSULE PO SCH (07:46)
[2017-09-12] MEDS: amLODIPine 5 MG TABLET PO SCH (07:46)
[2017-09-12] MEDS: LEVOTHYROXINE 25 MCG TABLET PO SCH (07:47)
[2017-09-12] MEDS: LISINOPRIL 10 MG TABLET PO SCH (07:47)
[2017-09-12] MEDS: PANTOPRAZOLE 40 MG TABLET PO SCH (07:47)
--- NOTE | 2017-09-12 09:22 | Discharge Summary ---
Medical - DS: Prov Patient information: Note initiated : 09/12/17 at 9:18 am Service Date, if different from initiated Date: [] Patient: Brent Curtis 61 y/o F admitted on 09/06/17 for Rectal Bleeding, Diarrhea/GI Bleed due to NSAIDs. Chief Complaint: [] Date of admission: 09/06/17 13:44 Discharge date: 09/12/17 Primary care physician: Raven Hanson Consults: 09/06/17 10:26 Consult to Physician [CONS] Stat Comment: Consulting Provider: Wilfred Carolina Reason For Exam: Physician to Consult Consult to Physician [CONS] Stat Comment: Consulting Provider: Surjit Mahoney Reason For Exam: Physician to Consult Medical - DS: Meds - Discharge Medications Prescriptions: amLODIPine [Norvasc] 5 mg PO DAILY #30 tab Levothyroxine [Synthroid] 25 mcg PO QAMAC #30 tab Pantoprazole [Protonix] 40 mg PO BIDAC #60 tab Active and Home Medications: Home Medications Albuterol Sulfate [Proair Hfa] 8.5 gm IH Q4-6HP PRN 08/17/15 [History Confirmed 09/06/17 Last Taken Unknown] HYDROcodone/APAP 5/325MG [[place] 5-325Mg] 1 - 2 tab PO Q4HP PRN 08/17/15 [ History Confirmed 09/06/17 Last Taken Unknown] LORazepam [Ativan] 0.5 mg PO Q4HP PRN 08/17/15 [History Confirmed 09/06/17 Last Taken Unknown] Spironolactone [Aldactone] 100 mg PO QDAY 08/17/15 [History Confirmed 09/06/17 Last Taken Unknown] Zolpidem Tartrate [Ambien] 5 mg PO QDAY 08/17/15 [History Confirmed 09/06/17 Last Taken Unknown] FLUoxetine HCL [Prozac] 20 mg PO DAILY 09/06/17 [History Confirmed 09/06/17 Last Taken Unknown] Lisinopril [Zestril] 10 mg PO DAILY 09/06/17 [History Confirmed 09/06/17 Last Taken Unknown] Pantoprazole [Protonix] 40 mg PO BIDAC #60 tab 09/12/17 [Rx Last Taken Unknown] amLODIPine [Norvasc] 5 mg PO DAILY #30 tab 09/12/17 [Rx Last Taken Unknown] Medical - DS: Hosp Hospital course: Discharge diagnosis * Upper GI bleed secondary to NSAID induced esophageal erosions/gastritis- status post EGD/colonoscopy. On twice daily PPI as per GI recommendations. * Blood loss anemia -not requiring transfusion. Hemoglobin over 10 * History of hypertension continue lisinopril/spironolactone/amlodipine * Chronic pain continue hydrocodone * Hypothyroidism with TSH 96/free T4 0.17-continue daily levothyroxine * Anxiety disorder continue fluoxetine Brief hospital course Mr. Curtis is a 61 year old F 61 year old F with PMHx of HTN, OA, fatty liver, hep C, and ran out of her [place] (hydrocodone), and had been taking aspirin for the last couple weeks for her arthritis pain. She began developing watery bloody diarrhea with clumps of blood clots, and developed progressive weakness and lightheadedness in the last several days. Her last bowel movement was very early this morning. She reported similar event in the past and was treated last several years ago at [facility]. Her hemoglobin is at 5.3, with INR 1.0, currently starting on blood transfusion. GI with Dr. Figueroa has been consulted by Dr. Sierra of ER for potential endoscopy to evaluate GI bleed. She is put on Protonix IV at the interim. 09/07/17 No bowel movement or diarrhea overnight since admission. TSH and free T4 evaluation shows hypothyroidism, will start oral replacement. Colonoscopy with Dr. Figueroa today. 09/08/[address] Figueroa, colonoscopy with few sessile polyps ( removed with snare), diverticula without diverticulitis, or sources of bleeding , Dr. Figueroa will proceed with EGD to evaluate GI bleeding tomorrow. Low potassium today, IV replace K rider. Otherwise patient is doing well, no more incidence of melena, hematochezia, nor black tarry stool. We will stop protonic drip. Continue daily Synthroid 25 g after initial dose of 50 g yesterday evening. 09/09/17 doing well overnight, will have EGD this afternoon. However, she had a maroon stool at roughly 10:45 AM, and is now put back on Protonix bolus follow with protonic drip. Will check EKG and cardiac enzymes, coags, and other electrolytes, Replace as needed. Her K is 3.5 this morning, we will go ahead with 40 mEq of K rider IV., Hold Aldactone for now, resume nothing by mouth until EGD to evaluate. Resume gentle IV fluid. 09/11-patient doing well. No overnight events. No further rectal bleed. Protonix drip DC'd and transition to oral Protonix 40 twice daily. Advancing diet to full liquids. Stable hemodynamics, vitals and labs. Hemoglobin 10.2. Ongoing physical therapy. Anticipate SNF transfer. DC Holder's catheter. Anticipate discharge in 24 hours if no further bleed. EGD revealed Gastritis along with some areas with changes consistent with a partially-healed erosion. 09/12-patient doing well. No overnight events including abdominal pain or diarrhea or bloody stool. Patient discharged in stable state on twice daily PPI twice to follow her primary care physician/GI in 4 weeks. Discharge diagnosis: . - Time Spent with Patient Total time spent providing and/or coordinating discharge services: Medical - DS: Exam - Constitutional Vitals: Vital Signs Temp Pulse Resp BP Pulse Ox 09/12/17 07:27 97.1 F 16 136/94 98 09/12/17 04:00 98.4 F 88 18 130/86 95 09/12/17 00:21 128/78 09/11/17 23:41 98.8 F 20 95 09/11/17 15:33 98.8 F 80 18 141/83 98 09/11/17 12:15 98.4 F 18 129/79 97 Intake and Output 09/11/17 09/12/17 09/12/17 21:59 05:59 13:59 Intake Total 240 / 240 120 / 120 Output Total 200 / 200 700 / 700 650 / 650 Balance 40 / 40 -700 / -700 -530 / -530 Intake: Oral 240 / 240 120 / 120 Output: Void Amount 200 / 200 700 / 700 650 / 650 Other: # Voids 1 Weight 137 lb Medical - DS: Data Labs on day of discharge: Labs from last 24 hours 09/12/17 03:38 Sodium 130 L Potassium 3.9 Chloride 98 Carbon Dioxide 21 L Anion Gap 11.0 BUN 6 L Creatinine 0.9 GFR Calculation 69 Glucose 87 Uric Acid 2.7 Calcium 8.1 L Phosphorus 2.3 L Magnesium 1.7 Total Bilirubin 0.2 Direct Bilirubin < 0.2 GGT 33 AST 38 H ALT 25 Alkaline Phosphatase 52 Lactate Dehydrogenase 248 Total Protein 5.9 Albumin 3.2 Globulin 2.7 Albumin/Globulin Ratio 1.2 Triglycerides 95 Medical - DS: A/P - Patient/Caregiver Discharge Instructions Activity: as per physical therapy (LE, health) Diet: Low Sodium (2gm) Additional Instructions: Follow-up GI in 4 weeks Follow-up PCP in 5 days I recommend primary care physician to check CBC BMP UA as a posthospital follow- up in 1 week. Continue Protonix twice daily for one month followed by once daily Avoid NSAIDs Continue levothyroxin 25 mcg daily Continue aggressive bowel regimen to prevent constipation Continue fall precautions Home health physical therapy/OT nursing d All meals on chair sitting upright at 90 degrees to prevent aspiration Return to ER if worsening fever chills shortness of breath, diarrhea, bleeding Continue diet and activity as advised Discussed importance of medication adherence Please review medication list with patient prior to discharge Please schedule follow-up with PCP/Providers prior to discharge and provide printouts Portions of this chart may have been created with [facility] voice recognition software. Occasional wrong-word or ?sound-like? substitutions may have occurred due to the inherent limitations of voice recognition software. Please read the chart carefully and recognize, using context, where the substitutions have occurred. CC- PCP Prescriptions: amLODIPine [Norvasc] 5 mg PO DAILY #30 tab Levothyroxine [Synthroid] 25 mcg PO QAMAC #30 tab Pantoprazole [Protonix] 40 mg PO BIDAC #60 tab - Follow up Plan Follow up with: Surjit Mahoney MD [Physician] - (Dr. Mahoney's office will contact you at home to schedule a follow up appointment in 2 weeks. If you do not hear from them please call .) Raven Hanson MD [Primary Care Provider] - 09/16/17 2:00 pm Disposition: Home Health Service Prognosis: Fair Rehab Potential: Fair I certify that the patient requires SNF services: No Overall status at discharge: patient is progressing back to baseline Medical - DS: Qual - VTE Deep Vein Thrombosis/Pulmonary Embolism Present on Admission: No
== END 2017-09-12 13:00 | disposition home health service (06) | DRG 378 ==
LOC: ED 08:23 → ICU 13:44
PROVIDERS: ADMIT Emergency Medicine; ATTEND Internal Medicine